=== PATIENT | male | born 1975 | race Caucasian/White ===

== ENCOUNTER 2018-02-20 12:45 | Emergency (ER) | payer OTHER, SELFPAY ==
[2018-02-20 12:50] VITALS: BP 132/90; PULSE 88; RESP 20; TEMP 36.7; O2SAT 100
--- NOTE | 2018-02-20 12:59 | DI.RAD.S_ITS ---
PROCEDURE: XR CHEST 2V INDICATIONS: chest pain TECHNIQUE: 2 views of the chest were acquired. COMPARISON: None. FINDINGS: Surgical changes and devices: None. Lungs and pleura: No pleural effusions or pneumothorax. Lungs are clear. Mediastinum: Mediastinal contours are normal. Heart size is normal. Bones and chest wall: No suspicious bony abnormalities. Soft tissues appear unremarkable. IMPRESSION: No acute cardiopulmonary disease. Dictated by: Bowen Huertas M.D. on 02/20/2018 at 13:10 Approved by: Bowen Huertas M.D. on 02/20/2018 at 13:11
--- NOTE | 2018-02-20 13:07 | ED.CHESTPAIN ---
HPI - Chest Pain General Chief Complaint: Chest Pain Stated Complaint: CHEST PAIN AND LEFT ARM PAIN Time Seen by Provider: 02/20/18 12:57 Source: patient Mode of arrival: ambulatory Limitations: no limitations History of Present Illness HPI narrative: 42 M no sig pmhx had sharp left side chest pain radiating to L arm lasting few seconds, subsequent nausea, but no vomiting. No lightheadedness or SOB. No prior episodes. 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 Symptoms resolved in ED. Took 325mg ASA prior to arrival. No sig past family hx of cardiac disease before age 65. Review of Systems Eyes Denies change in vision, Denies eye discharge, Denies irritation and Denies loss of vision ENT Ears, Nose, Mouth, and Throat: Denies change in voice, Denies neck pain and Denies sore throat Cardiovascular Denies chest pain, Denies irregular heart rhythm, Denies lightheadedness, Denies palpitations, Denies dyspnea, Denies dyspnea on exertion and Denies orthopnea Respiratory Denies cough, Denies dyspnea, Denies dyspnea on exertion and Denies wheezing Gastrointestinal Gastrointestinal: Denies abdominal pain, Denies change in bowel habits, Denies diarrhea, Denies nausea and Denies vomiting Genitourinary Denies hematuria, Denies flank pain, Denies urinary incontinence and Denies urinary urgency Musculoskeletal Denies neck pain Neurologic Denies loss of vision Endocrine Denies palpitations Hematologic/Lymphatic Denies easy bruising Allergic/Immunologic Denies wheezing [facility] Social History Smoking Status: Former smoker Exam Initial Vital Signs Initial Vital Signs: Vital Signs Temperature 98.0 F 02/20/18 12:50 Pulse Rate 88 02/20/18 12:50 Respiratory Rate 20 02/20/18 12:50 Blood Pressure 132/90 H 02/20/18 12:50 Pulse Oximetry 100 02/20/18 12:50 Const General: cooperative and well developed Nutritional Appearance: well nourished Orientation: alert, awake, oriented x3 and not confused HENMT Head: normocephalic and atraumatic Ears: external ears normal and TM's normal bilaterally Nose: external nose normal and No nasal discharge Face and sinus: sinuses nontender, face symmetric, no sinus tenderness and No dry mucous membranes Mouth: oral mucosae normal and moist mucous membranes Teeth and gingiva: dentition normal Throat: tonsils normal and uvula midline Chest Chest: normal inspection of the chest Resp Effort & Inspection: normal respiratory effort, able to speak in complete sentences, no respiratory distress and no use of accessory muscles Auscultation: clear to auscultation bilaterally, no rales, no rhonchi and no wheezes Cardio Rate: regular rate Rhythm: regular rhythm Heart Sounds: no click, no gallops, no murmurs and no rubs Pulses: normal peripheral pulses GI Inspection: non-distended Palpation: soft, no hepatosplenomegaly, No guarding, No pulsatile mass and No tender Auscultation: normal bowel sounds Skin General: no rashes or lesions noted, No jaundice and No petechiae Neuro General: alert, oriented x3, gait normal and no focal motor deficits Speech: speech normal Course Orders Ordered: ED Orders 02/20/18 12:58 EKG-12 Lead Stat 02/20/18 12:59 XR chest 2V Stat 02/20/18 13:20 Complete Blood Count AUTO DIFF Stat Comprehensive Metabolic Panel Stat Hepatic (Liver) Panel Stat Lipase Stat Partial Thromboplastin Time Stat Prothrombin Time INR Stat Troponin with CK Cardiac Panel Stat Discontinued Medications Aspirin (Aspirin Chew) 324 mg PO NOW ONE Stop: 02/20/18 12:58 Last Admin: 02/20/18 13:26 Dose: Sodium Chloride (Normal Saline 0.9%) 1,000 mls @ 150 mls/hr IV CONT JENNA Last Admin: 02/20/18 13:26 Dose: Ketorolac Tromethamine (Toradol) 15 mg IV NOW ONE Stop: 02/20/18 13:13 Last Admin: 02/20/18 13:30 Dose: 15 mg Nitroglycerin (Nitrostat) 0.4 mg SL [id number] PRN PRN Reason: Chest Pain Vital Signs - 8 hr 02/20/18 12:50 02/20/18 13:30 02/20/18 13:58 Temperature 98.0 F Pulse Rate 88 76 75 Respiratory Rate 20 13 18 Blood Pressure 132/90 H Blood Pressure [Right Arm] 120/81 H 120/81 H Pulse Oximetry 100 97 98 02/20/18 14:32 Temperature Pulse Rate 76 Respiratory Rate 12 Blood Pressure Blood Pressure [Right Arm] 114/80 Pulse Oximetry 99 MDM - Chest Pain Differential Diagnosis Likely pneumothorax, atypical chest pain, costochondritis and chest pain Medical Records Data Attestation: I reviewed the patient's medical records. Lab Data Result diagrams: 02/20/18 13:20 02/20/18 13:20 Lab Results 02/20/18 02/20/18 02/20/18 Range/Units 13:20 13:20 13:20 WBC 7.0 (4.5-11.0) X10^3/uL RBC 4.89 (4.5-5.9) X10^6/uL Hgb 14.1 (13.5-17.5) g/dL Hct 40.9 L (41-53) % MCV 83.6 (80-100) fL MCH 28.8 (26-34) PG MCHC 34.5 (30-36) % RDW 13.2 (11.6-14.8) % Plt Count 290 (150-400) X10^3/uL Neut % (Auto) 71.5 (50-75) % Lymph % (Auto) 18.8 L (25-40) % [place] % (Auto) 7.8 (3-14) % Eos % (Auto) 1.1 L (2-4) % Baso % (Auto) 0.8 (0-2) % Neut # (Auto) 5000 (5432-8610) /uL PT 11.4 (10.1-12.7) SECONDS INR 1.1 (0.9-1.3) APTT 38 H (26.4-36.2) SECONDS Sodium 143 (137-145) mmol/L Potassium 4.6 (3.4-5.1) mmol/L Chloride 105.0 (98-107) mmol/L Carbon Dioxide 27.0 (22-32) mmol/L BUN 15.0 (9-20) mg/dL Creatinine 0.80 (0.66-1.25) mg/dL Estimated GFR > 60.0 (>60) mL/min BUN/Creatinine Ratio 18.8 (6-22) Glucose 99 (70-100) mg/dL Calcium 9.4 (8.4-10.2) mg/dL Total Bilirubin 0.4 (0.2-1.3) mg/dL Conjugated Bilirubin 0.0 (0.0-0.3) md/dL Unconjugated Bilirubin 0.1 (0.0-1.1) mg/dL AST 23 (17-59) IU/L ALT 31 (21-72) IU/L Alkaline Phosphatase 95 (38-126) U/L Total Creatine Kinase 114 (55-170) U/L CK-MB (CK-2) 0.62 (<2.37) ng/mL CK-MB (CK-2) Rel Index 0.5 L (1.5-5.0) % Troponin I < 0.012 (0.01-0.034) ng/mL Total Protein 7.9 (6.3-8.2) g/dL Albumin 4.5 (3.5-5.0) g/dL Globulin 3.4 (1.7-4.1) g/dL Albumin/Globulin Ratio 1.3 (1.0-2.8) Lipase 58 (23-300) U/L Imaging Data Chest x-ray: My impression: CXR WNL Radiologist's impression: Patient: DANA SAUNDERS#: [id number] : 1975Acct:[id number] Age/Sex: 42 / MDate of Service: 02/20/18 Loc: ED Accession Number: [id number] Procedure: XR chest 2V Ordering Provider: Rl Padgett M.D. PROCEDURE: XR CHEST 2V INDICATIONS: chest pain TECHNIQUE: 2 views of the chest were acquired. COMPARISON: None. FINDINGS: Surgical changes and devices: None. Lungs and pleura: No pleural effusions or pneumothorax. Lungs are clear. Mediastinum: Mediastinal contours are normal. Heart size is normal. Bones and chest wall: No suspicious bony abnormalities. Soft tissues appear unremarkable. IMPRESSION: No acute cardiopulmonary disease. Dictated by: Bowen Huertas M.D. on 02/20/2018 at 13:10 Approved by: Bowen Huertas M.D. on 02/20/2018 at 13:11 ECG Data Interpretation: Sinus rhythm HR [address]/Tw changes No ectopy [place] intervals WNL MDM Narrative Medical decision making narrative: PERC negative Sharp pain unlikely cardiac in patient with no significant risk factors. CXR is WNL Labs reviewed. No acute abnormalities requiring urgent intervention at this time. Patient is stable for discharge. Discharge Plan Departure Patient Disposition: Home, Self-Care Clinical Impression: Chest pain, non-cardiac Discharge Date/Time: 02/20/18 14:46 Interventions: ED Discharge Assessment Last Done: 02/20/18 14:45 Instructions: DI for Chest Pain Activity Restrictions/Additional Instructions: Maintain adequate hydration. Please follow up with your primary care provider.
--- NOTE | 2018-02-20 13:20 | ED_ITS ---
HPI - Chest Pain General Chief Complaint: Chest Pain Stated Complaint: CHEST PAIN AND LEFT ARM PAIN Time Seen by Provider: 02/20/18 12:57 Source: patient Mode of arrival: ambulatory Limitations: no limitations History of Present Illness HPI narrative: 42 M no sig pmhx had sharp left side chest pain radiating to L arm lasting few seconds, subsequent nausea, but no vomiting. No lightheadedness or SOB. No prior episodes. 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 Symptoms resolved in ED. Took 325mg ASA prior to arrival. No sig past family hx of cardiac disease before age 65. Review of Systems Eyes Denies change in vision, Denies eye discharge, Denies irritation and Denies loss of vision ENT Ears, Nose, Mouth, and Throat: Denies change in voice, Denies neck pain and Denies sore throat Cardiovascular Denies chest pain, Denies irregular heart rhythm, Denies lightheadedness, Denies palpitations, Denies dyspnea, Denies dyspnea on exertion and Denies orthopnea Respiratory Denies cough, Denies dyspnea, Denies dyspnea on exertion and Denies wheezing Gastrointestinal Gastrointestinal: Denies abdominal pain, Denies change in bowel habits, Denies diarrhea, Denies nausea and Denies vomiting Genitourinary Denies hematuria, Denies flank pain, Denies urinary incontinence and Denies urinary urgency Musculoskeletal Denies neck pain Neurologic Denies loss of vision Endocrine Denies palpitations Hematologic/Lymphatic Denies easy bruising Allergic/Immunologic Denies wheezing [facility] Social History Smoking Status: Former smoker Exam Initial Vital Signs Initial Vital Signs: Vital Signs Temperature 98.0 F 02/20/18 12:50 Pulse Rate 88 02/20/18 12:50 Respiratory Rate 20 02/20/18 12:50 Blood Pressure 132/90 H 02/20/18 12:50 Pulse Oximetry 100 02/20/18 12:50 Const General: cooperative and well developed Nutritional Appearance: well nourished Orientation: alert, awake, oriented x3 and not confused HENMT Head: normocephalic and atraumatic Ears: external ears normal and TM's normal bilaterally Nose: external nose normal and No nasal discharge Face and sinus: sinuses nontender, face symmetric, no sinus tenderness and No dry mucous membranes Mouth: oral mucosae normal and moist mucous membranes Teeth and gingiva: dentition normal Throat: tonsils normal and uvula midline Chest Chest: normal inspection of the chest Resp Effort & Inspection: normal respiratory effort, able to speak in complete sentences, no respiratory distress and no use of accessory muscles Auscultation: clear to auscultation bilaterally, no rales, no rhonchi and no wheezes Cardio Rate: regular rate Rhythm: regular rhythm Heart Sounds: no click, no gallops, no murmurs and no rubs Pulses: normal peripheral pulses GI Inspection: non-distended Palpation: soft, no hepatosplenomegaly, No guarding, No pulsatile mass and No tender Auscultation: normal bowel sounds Skin General: no rashes or lesions noted, No jaundice and No petechiae Neuro General: alert, oriented x3, gait normal and no focal motor deficits Speech: speech normal Course Orders Ordered: ED Orders 02/20/18 12:58 EKG-12 Lead Stat 02/20/18 12:59 XR chest 2V Stat 02/20/18 13:20 Complete Blood Count AUTO DIFF Stat Comprehensive Metabolic Panel Stat Hepatic (Liver) Panel Stat Lipase Stat Partial Thromboplastin Time Stat Prothrombin Time INR Stat Troponin with CK Cardiac Panel Stat Discontinued Medications Aspirin (Aspirin Chew) 324 mg PO NOW ONE Stop: 02/20/18 12:58 Last Admin: 02/20/18 13:26 Dose: Sodium Chloride (Normal Saline 0.9%) 1,000 mls @ 150 mls/hr IV CONT JENNA Last Admin: 02/20/18 13:26 Dose: Ketorolac Tromethamine (Toradol) 15 mg IV NOW ONE Stop: 02/20/18 13:13 Last Admin: 02/20/18 13:30 Dose: 15 mg Nitroglycerin (Nitrostat) 0.4 mg SL [id number] PRN PRN Reason: Chest Pain Vital Signs - 8 hr 02/20/18 12:50 02/20/18 13:30 02/20/18 13:58 Temperature 98.0 F Pulse Rate 88 76 75 Respiratory Rate 20 13 18 Blood Pressure 132/90 H Blood Pressure [Right Arm] 120/81 H 120/81 H Pulse Oximetry 100 97 98 02/20/18 14:32 Temperature Pulse Rate 76 Respiratory Rate 12 Blood Pressure Blood Pressure [Right Arm] 114/80 Pulse Oximetry 99 MDM - Chest Pain Differential Diagnosis Likely pneumothorax, atypical chest pain, costochondritis and chest pain Medical Records Data Attestation: I reviewed the patient's medical records. Lab Data Result diagrams: 02/20/18 13:20 02/20/18 13:20 Lab Results 02/20/18 02/20/18 02/20/18 Range/Units 13:20 13:20 13:20 WBC 7.0 (4.5-11.0) X10^3/uL RBC 4.89 (4.5-5.9) X10^6/uL Hgb 14.1 (13.5-17.5) g/dL Hct 40.9 L (41-53) % MCV 83.6 (80-100) fL MCH 28.8 (26-34) PG MCHC 34.5 (30-36) % RDW 13.2 (11.6-14.8) % Plt Count 290 (150-400) X10^3/uL Neut % (Auto) 71.5 (50-75) % Lymph % (Auto) 18.8 L (25-40) % [place] % (Auto) 7.8 (3-14) % Eos % (Auto) 1.1 L (2-4) % Baso % (Auto) 0.8 (0-2) % Neut # (Auto) 5000 (8886-1202) /uL PT 11.4 (10.1-12.7) SECONDS INR 1.1 (0.9-1.3) APTT 38 H (26.4-36.2) SECONDS Sodium 143 (137-145) mmol/L Potassium 4.6 (3.4-5.1) mmol/L Chloride 105.0 (98-107) mmol/L Carbon Dioxide 27.0 (22-32) mmol/L BUN 15.0 (9-20) mg/dL Creatinine 0.80 (0.66-1.25) mg/dL Estimated GFR > 60.0 (>60) mL/min BUN/Creatinine Ratio 18.8 (6-22) Glucose 99 (70-100) mg/dL Calcium 9.4 (8.4-10.2) mg/dL Total Bilirubin 0.4 (0.2-1.3) mg/dL Conjugated Bilirubin 0.0 (0.0-0.3) md/dL Unconjugated Bilirubin 0.1 (0.0-1.1) mg/dL AST 23 (17-59) IU/L ALT 31 (21-72) IU/L Alkaline Phosphatase 95 (38-126) U/L Total Creatine Kinase 114 (55-170) U/L CK-MB (CK-2) 0.62 (<2.37) ng/mL CK-MB (CK-2) Rel Index 0.5 L (1.5-5.0) % Troponin I < 0.012 (0.01-0.034) ng/mL Total Protein 7.9 (6.3-8.2) g/dL Albumin 4.5 (3.5-5.0) g/dL Globulin 3.4 (1.7-4.1) g/dL Albumin/Globulin Ratio 1.3 (1.0-2.8) Lipase 58 (23-300) U/L Imaging Data Chest x-ray: My impression: CXR WNL Radiologist's impression: Patient: DANA SAUNEDRS#: [id number] : 1975Acct:[id number] Age/Sex: 42 / MDate of Service: 02/20/18 Loc: ED Accession Number: [id number] Procedure: XR chest 2V Ordering Provider: Rl Padgett M.D. PROCEDURE: XR CHEST 2V INDICATIONS: chest pain TECHNIQUE: 2 views of the chest were acquired. COMPARISON: None. FINDINGS: Surgical changes and devices: None. Lungs and pleura: No pleural effusions or pneumothorax. Lungs are clear. Mediastinum: Mediastinal contours are normal. Heart size is normal. Bones and chest wall: No suspicious bony abnormalities. Soft tissues appear unremarkable. IMPRESSION: No acute cardiopulmonary disease. Dictated by: Bowen Huertas M.D. on 02/20/2018 at 13:10 Approved by: Bowen Huertas M.D. on 02/20/2018 at 13:11 ECG Data Interpretation: Sinus rhythm HR [address]/Tw changes No ectopy [place] intervals WNL MDM Narrative Medical decision making narrative: PERC negative Sharp pain unlikely cardiac in patient with no significant risk factors. CXR is WNL Labs reviewed. No acute abnormalities requiring urgent intervention at this time. Patient is stable for discharge. Discharge Plan Departure Patient Disposition: Home, Self-Care Clinical Impression: Chest pain, non-cardiac Discharge Date/Time: 02/20/18 14:46 Interventions: ED Discharge Assessment Last Done: 02/20/18 14:45 Instructions: DI for Chest Pain Activity Restrictions/Additional Instructions: Maintain adequate hydration. Please follow up with your primary care provider.
[2018-02-20 13:29] LABS: Add Manual Diff / Slide Review NO; Basophils Percent Auto 0.8 % (0-2); Eosinophils Percent Auto 1.1 % (2-4); Hematocrit 40.9 % (41-53); Hemoglobin 14.1 g/dL (13.5-17.5); Lymphocytes Percent Auto 18.8 % (25-40); Mean Corpuscular HGB Conc 34.5 % (30-36); Mean Corpuscular Hemoglobin 28.8 PG (26-34); Mean Corpuscular Volume 83.6 fL (80-100); Monocytes Percent Auto 7.8 % (3-14); Neutrophils Absolute Auto 5000 /uL (3000-5900); Neutrophils Percent Auto 71.5 % (50-75); Platelet Count 290 X10^3/uL (150-400); Red Blood Cell Count 4.89 X10^6/uL (4.5-5.9); Red Cell Distribution Width 13.2 % (11.6-14.8)
[2018-02-20 13:30] VITALS: BP 120/81; PULSE 76; RESP 13; O2SAT 97
[2018-02-20] MEDS: KETOROLAC 60 MG/2 ML VIAL 15 MG IV (13:30)
[2018-02-20 13:37] LABS: INR 1.1 (0.9-1.3); Prothrombin Time 11.4 SECONDS (10.1-12.7)
[2018-02-20 13:39] LABS: PTT Partial Thromboplastin Tim 38 SECONDS (26.4-36.2)
[2018-02-20 13:42] LABS: Alanine Aminotransferase 31 IU/L (21-72); Albumin 4.5 g/dL (3.5-5.0); Albumin Globulin Ratio 1.3 (1.0-2.8); Alkaline Phosphatase 95 U/L (38-126); Aspartate Aminotransferase 23 IU/L (17-59); BUN Creatinine Ratio 18.8 (6-22); Bilirubin Total 0.4 mg/dL (0.2-1.3); Bilirubin Unconjugated 0.1 mg/dL (0.0-1.1); Calcium 9.4 mg/dL (8.4-10.2); Creatine Kinase 114 U/L (55-170); Estimated Glomerular Filt Rate > 60.0 mL/min (>60); Globulin 3.4 g/dL (1.7-4.1); Glucose 99 mg/dL (70-100); HEMOLYSIS < 15 (0-50); Lipase 58 U/L (23-300); Potassium 4.6 mmol/L (3.4-5.1); Sodium 143 mmol/L (137-145); Total Protein 7.9 g/dL (6.3-8.2)
[2018-02-20 13:54] LABS: Troponin I < 0.012 ng/mL (0.01-0.034)
[2018-02-20 13:58] VITALS: BP 120/81; PULSE 75; RESP 18; O2SAT 98
[2018-02-20 13:58] LABS: CKMB % Relative Index 0.5 % (1.5-5.0); Creatine Kinase MB 0.62 ng/mL (<2.37)
[2018-02-20 14:32] VITALS: BP 114/80; PULSE 76; RESP 12; O2SAT 99
== END 2018-02-20 14:46 | disposition home or self-care (01) ==
PROVIDERS: Emergency Provider Student in an Organized Health Care Education/Training Program
DX: R07.89 Other chest pain (principal)
CPT/HCPCS: 71046; 80053; 80076; 82550; 82553; 83690; 84484; 85025; 85610; 85730; 93005; 93041; 96374; 99283; 99285; J1885

== ENCOUNTER → 2019-02-07 09:14 | Outpatient (CLI) | payer OTHER, SELFPAY ==
--- NOTE | 2019-02-07 | DI.MRI.S_ITS ---
PROCEDURE: MR SHOULDER LT W CON INDICATIONS: LEFT SHOULDER PAIN TECHNIQUE: After the administration of 12 mL of dilute intra-articular Gadolinium contrast, oblique coronal T1 and T2 spin echo with fat saturation, oblique sagittal T1 spin echo with and without fat saturation, oblique sagittal T2 fast spin echo with fat saturation, axial T1 spin echo with fat saturation through the shoulder. COMPARISON: None. FINDINGS: Image quality: Excellent. Rotator cuff: Supraspinatus and infraspinatus tendinopathy, with mild thickening and internal signal changes. Low-grade bursal and articular surface fraying of the critical zone of the supraspinatus tendon. There is also mild articular surface fraying of the infraspinatus tendon. Minimal teres minor tendinopathy of the subscapularis tendon appears grossly intact. No atrophy of the rotator cuff musculature although there is mild diffuse fatty infiltration. Bones and bursae: No bone marrow contusions or fractures. Moderate acromioclavicular joint degeneration. Lateral downsloping appearance of the acromion. The acromion demonstrates conventional anatomy, without an os acromiale. Capsule and soft tissues: Superior labral tear is noted. The long head of the biceps tendon demonstrates normal location and morphology. The rotator interval appears normal, without fibrosis. The coracohumeral ligament is of normal thickness. No intra-articular bodies. IMPRESSION: Supraspinatus tendinopathy with low-grade partial thickness bursal and articular-sided tear at the critical zone. No full-thickness tear. Mild articular surface fraying of the infraspinatus tendon. Minimal teres minor tendinopathy. Superior labral tear. Lateral downsloping appearance of the acromion. Dictated by: Babatunde Cadena M.D. on 02/07/2019 at 11:27 Approved by: Babatunde Cadena M.D. on 02/07/2019 at 11:34
--- NOTE | 2019-02-07 | DI.RAD.S_ITS ---
PROCEDURE: FL SHOULDER INJECTION MR/CT LT INDICATIONS: LEFT SHOULDER PAIN TECHNIQUE: The indications, alternatives, benefits, risks, and complications of the procedure were explained to the patient. Written informed consent was obtained and placed in the chart. The shoulder was examined fluoroscopically and a site for needle placement chosen for entry into the glenohumeral joint from an anterior approach. The skin was prepped and draped in a sterile fashion, and 1% lidocaine infiltrated from skin down to joint capsule. A spinal needle was inserted into the glenohumeral joint, and a small amount of iodinated contrast media injected to confirm intra-articular placement of the needle tip. This was followed by approximately 12 mL dilute solution of a gadolinium containing MR contrast agent. The needle was removed and a dressing was applied. The patient was given postprocedural instructions and sent to the MR suite for MR imaging. FINDINGS: A single fluoroscopic spot image demonstrates intra-articular location of injected iodinated contrast. IMPRESSION: Successful fluoroscopically guided administration of dilute Gadolinium solution into the shoulder joint for MR arthrogram. Dictated by: Hoa Torres M.D. on 02/07/2019 at 11:57 Approved by: Hoa Torres M.D. on 02/07/2019 at 11:57
== END ==
PROVIDERS: PCP Family Medicine; Visit Provider Family Medicine
DX: S43.402A Unspecified sprain of left shoulder joint, initial encounter (principal); M75.112 Incomplete rotator cuff tear or rupture of left shoulder, not specified as traumatic; S43.432A Superior glenoid labrum lesion of left shoulder, initial encounter
CPT/HCPCS: 23350; 73222; 77002

== ENCOUNTER 2020-08-04 10:46 | Emergency (ER) | payer OTHER, SELFPAY ==
[2020-08-04] VITALS (8 sets, daily range): BP systolic 111–146; BP diastolic 69–85; PULSE 84–113; RESP 15; TEMP 36.9; O2SAT 95–98; BMI 25.8
[2020-08-04 11:08] LABS: Add Manual Diff / Slide Review NO; Basophils Absolute Auto 0 /uL (0-100); Basophils Percent Auto 0.8 % (0-2); Eosinophils Absolute Auto 100 /uL (0-450); Eosinophils Percent Auto 1.3 % (2-4); Hematocrit 43.5 % (41-53); Hemoglobin 14.6 g/dL (13.5-17.5); Lymphocytes Absolute Auto 1400 /uL (1100-4500); Lymphocytes Percent Auto 23.9 % (25-40); Mean Corpuscular HGB Conc 33.4 % (30-36); Mean Corpuscular Hemoglobin 28.7 PG (26-34); Mean Corpuscular Volume 85.7 fL (80-100); Monocytes Absolute Auto 700 /uL (0-900); Monocytes Percent Auto 12.5 % (3-14); Neutrophils Absolute Auto 3700 /uL (1500-7000); Neutrophils Percent Auto 61.5 % (50-75); Platelet Count 313 X10^3/uL (150-400); Red Blood Cell Count 5.08 X10^6/uL (4.5-5.9)
[2020-08-04 11:13] LABS: INR 1.1 (0.9-1.3); Prothrombin Time 12.2 SECONDS (10.1-12.7)
[2020-08-04 11:16] LABS: PTT Partial Thromboplastin Tim 38 SECONDS (26.4-36.2)
[2020-08-04 11:19] LABS: Alanine Aminotransferase 29 IU/L (<50); Albumin 4.6 g/dL (3.5-5.0); Albumin Globulin Ratio 1.2 (1.0-2.8); Alkaline Phosphatase 106 U/L (38-126); Aspartate Aminotransferase 27 IU/L (17-59); BUN Creatinine Ratio 23.2 (6-22); Bilirubin Total 0.4 mg/dL (0.2-1.3); Blood Urea Nitrogen 16 mg/dL (9-20); Calcium 9.6 mg/dL (8.4-10.2); Carbon Dioxide 24 mmol/L (22-32); Chloride 105 mmol/L (98-107); Estimated Glomerular Filt Rate > 60.0 mL/min (>60); Globulin 3.7 g/dL (1.7-4.1); Glucose 102 mg/dL (70-100); HEMOLYSIS < 15 (0-50); Lipase 76 U/L (23-300); Sodium 137 mmol/L (137-145); Total Protein 8.3 g/dL (6.3-8.2)
--- NOTE | 2020-08-04 14:12 | PC.NURSE ---
Two months of intermittent abdominal pain, RUQ, and nausea/diarrhea. Pt also reports recent ultrasound through [facility] for white/light stools.
--- NOTE | 2020-08-04 14:17 | DI.US.S_ITS ---
PROCEDURE: US ABDOMEN LIMITED INDICATIONS: RUQ pain, + marin TECHNIQUE: Real-time scanning was performed of the abdominal and retroperitoneal organs, with image documentation. COMPARISON: [facility], US, US ABDOMEN COMPLETE, 07/17/2020, 11:26. FINDINGS: Liver: The liver demonstrates diffusely increased echotexture without focal abnormalities consistent with chronic hepatocellular disease/hepatic steatosis. Gallbladder: Gallbladder is normal in sonographic appearance without gallstones, gallbladder wall thickening, pericholecystic fluid, or abnormal sonographic Marin's. Biliary ducts: Intrahepatic bile ducts are non-dilated. Extrahepatic bile duct caliber measures 2 mm. Normal is 6-7 mm or less in diameter, or 10 mm or less post-cholecystectomy. Pancreas: Visualized portions of the pancreas are sonographically normal. Miscellaneous: No free abdominal fluid. IMPRESSION: The liver demonstrates diffusely increased echotexture without focal abnormalities consistent with chronic hepatocellular disease/hepatic steatosis. Consider correlation with LFTs. Normal sonographic evaluation of the gallbladder. Dictated by: Leonardo Pugh M.D. on 08/04/2020 at 14:01 Approved by: Leonardo Pugh M.D. on 08/04/2020 at 14:04
[2020-08-04] MEDS: SODIUM CHLORIDE 0.9% 1,000 ML 1000 ML IV (14:25)
[2020-08-04] MEDS: KETOROLAC 60 MG/2 ML VIAL 30 MG IV (15:49)
--- NOTE | 2020-08-04 17:06 | ED_ITS ---
HPI - Abdominal Pain <SUE Reyes - Last Filed: 08/04/20 17:19> General Chief Complaint: Abdominal Pain Stated Complaint: ruq pain/bloating x1 1/2 month Time Seen by Provider: 08/04/20 13:41 Source: patient Mode of arrival: Ambulatory Limitations: no limitations History of Present Illness HPI narrative: The patient is a 44-year-old male medical history presents with a chief complaint of right upper quadrant pain for the past month +, worse this morning at 3:30 a.m.. States that he has had a an ultrasound of his gallbladder in his liver has been referred to GI and has an appointment with them on Sunday. He denies any vomiting complains of slight nausea. Denies any feve rs but did have some chills earlier today. He states that his pain is right upper quadrant was terrible at 3:30 a.m. this morning. He later admits that he had ice cream and apple pie last night after dinner after trying to avoid fatty foods for the past month or so. He wonders if there is a lot of fat in apple pie or ice cream. Related Data Previous Rx's Medication Instructions Recorded ketorolac 10 mg PO TID PRN #15 tab 08/04/20 Allergies Allergy/AdvReac Type Severity Reaction Status Date / Time No Known Drug Allergies Allergy Verified 08/04/20 10:52 Review of Systems <SUE Reyse - Last Filed: 08/04/20 17:19> Review of Systems Narrative: GENERAL: Denies chills, fatigue, malaise, fever, sweats. HEENT: Denies sinus pain, ear pain, sore throat, difficulty swallowing, dizziness. RESPIRATORY: Denies dyspnea, cough, wheezing, hemoptysis, sputum. CARDIOVASCULAR: Denies chest pain, palpitations, orthopnea, edema, GASTROINTESTINAL: See HPI : Denies dysuria, frequency, incontinence, hematuria, urinary retention. MUSCULOSKELETAL: denies weakness, joint pain, or bony pain SKIN: Denies rash, skin lesions, or other NEUROLOGIC: Denies weakness, headache, numbness, change in speech, confusion, seizures, incoordination. PSYCHIATRIC: No concerning psychosocial issues. 12 point review of systems is negative except for those stated above Patient History <SEU ReyesJAQUI - Last Filed: 08/04/20 17:19> Social History Smoking Status: Former smoker Smoking Status: Former smoker alcohol intake frequency: 0-2 drinks per day Substance Use Type: does not use Exam <SWEETIE Reyes - Last Filed: 08/04/20 17:19> Narrative Exam Narrative: GENERAL: This is a well-nourished, well-developed patient, in no acute distress HEAD: Atraumatic. Normocephalic. No temporal or scalp tenderness. EYES: Pupils equal round and reactive. Extraocular motions intact. No scleral icterus. No injection or drainage. ENT: Nose without bleeding, purulent drainage or septal hematoma. Throat without erythema, tonsillar hypertrophy or exudate. Uvula midline. Airway patent. NECK: Trachea midline. No JVD or lymphadenopathy. Supple, nontender, no meningeal signs. CARDIOVASCULAR: Regular rate and rhythm without murmurs, gallops, or rubs. RESPIRATORY: Clear to auscultation. Breath sounds equal bilaterally. No wheezes, rales, or rhonchi. No cough. No increased respiratory effort. No accessory muscle use. GASTROINTESTINAL: Abdomen soft, diffusely tender across right upper quadrant, slight guarding to palpation right upper quadrant, nondistended. No hepato- splenomegaly, or palpable masses. Active bowel sounds all 4 quadrants EXTREMITIES: No clubbing, cyanosis, or edema. No joint tenderness, effusion, or edema noted. BACK: Nontender without deformity or crepitance. No flank tenderness. NEURO: AOx3. SKIN: No rash or erythema on visible skin Initial Vital Signs Initial Vital Signs: Vital Signs Temperature 98.5 F 08/04/20 10:52 Pulse Rate 113 H 08/04/20 10:52 Respiratory Rate 15 08/04/20 10:52 Blood Pressure 146/85 H 08/04/20 10:52 Pulse Oximetry 98 08/04/20 10:52 <Pb Moyer MD - Last Filed: 08/05/20 08:15> Initial Vital Signs Initial Vital Signs: Vital Signs Temperature 98.5 F 08/04/20 10:52 Pulse Rate 113 H 08/04/20 10:52 Respiratory Rate 15 08/04/20 10:52 Blood Pressure 146/85 H 08/04/20 10:52 Pulse Oximetry 98 08/04/20 10:52 Scores <SWEETIE Reyes - Last Filed: 08/04/20 17:19> GCS [place] coma scale eye opening: Spontaneous [place] coma scale verbal response: Orientated Aren coma scale motor response: Obey commands Aren coma scale total score: 15 Course <SWEETIE Reyes - Last Filed: 08/04/20 17:19> Orders Ordered: Discontinued Medications Sodium Chloride (Normal Saline 0.9%) 1,000 mls @ 1,000 mls/hr IV BOLUS ONE Stop: 08/04/20 15:16 Last Infusion: 08/04/20 15:49 Dose: 0 mls/hr Documented by: Admin: 08/04/20 14:25 Dose: 1,000 mls/hr Documented by: REBA Ketorolac Tromethamine (Toradol) 30 mg IV NOW ONE Stop: 08/04/20 15:41 Last Admin: 08/04/20 15:49 Dose: 30 mg Documented by: REBA Vital Signs Vital signs: Vital Signs - 8 hr 08/04/20 10:52 08/04/20 14:18 08/04/20 14:30 Temperature 98.5 F Pulse Rate 113 H 85 85 Respiratory Rate 15 Blood Pressure 146/85 H 121/76 Pulse Oximetry 98 98 97 08/04/20 15:03 08/04/20 15:05 08/04/20 15:30 Temperature Pulse Rate 97 H 89 85 Respiratory Rate Blood Pressure 123/84 116/76 Pulse Oximetry 96 97 98 08/04/20 16:00 08/04/20 17:08 Temperature Pulse Rate 84 86 Respiratory Rate Blood Pressure 111/71 118/69 Pulse Oximetry 97 95 <Pb Moyer MD - Last Filed: 08/05/20 08:15> Orders Ordered: Discontinued Medications Sodium Chloride (Normal Saline 0.9%) 1,000 mls @ 1,000 mls/hr IV BOLUS ONE Stop: 08/04/20 15:16 Last Infusion: 08/04/20 15:49 Dose: 0 mls/hr Documented by: Admin: 08/04/20 14:25 Dose: 1,000 mls/hr Documented by: REBA Ketorolac Tromethamine (Toradol) 30 mg IV NOW ONE Stop: 08/04/20 15:41 Last Admin: 08/04/20 15:49 Dose: 30 mg Documented by: REBA Vital Signs Vital signs: Vital Signs - 8 hr 08/04/20 10:52 08/04/20 14:18 08/04/20 14:30 Temperature 98.5 F Pulse Rate 113 H 85 85 Respiratory Rate 15 Blood Pressure 146/85 H 121/76 Pulse Oximetry 98 98 97 08/04/20 15:03 08/04/20 15:05 08/04/20 15:30 Temperature Pulse Rate 97 H 89 85 Respiratory Rate Blood Pressure 123/84 116/76 Pulse Oximetry 96 97 98 08/04/20 16:00 08/04/20 17:08 Temperature Pulse Rate 84 86 Respiratory Rate Blood Pressure 111/71 118/69 Pulse Oximetry 97 95 MDM - Abdominal Pain <CONSTANZA Reyes- - Last Filed: 08/04/20 17:19> Lab Data Attestation: I reviewed the patient's lab results. Result diagrams: 08/04/20 10:02 08/04/20 10:02 Labs: Lab Results 08/04/20 08/04/20 08/04/20 Range/Units 10:02 10:02 10:02 WBC 6.0 (4.5-11.0) X10^3/uL RBC 5.08 (4.5-5.9) X10^6/uL Hgb 14.6 (13.5-17.5) g/dL Hct 43.5 (41-53) % MCV 85.7 (80-100) fL MCH 28.7 (26-34) PG MCHC 33.4 (30-36) % RDW 13.0 (11.6-14.8) % Plt Count 313 (150-400) X10^3/uL Neut % (Auto) 61.5 (50-75) % Lymph % (Auto) 23.9 L (25-40) % Duval % (Auto) 12.5 (3-14) % Eos % (Auto) 1.3 L (2-4) % Baso % (Auto) 0.8 (0-2) % Neut # (Auto) 3700 (1616-2764) /uL Lymph # (Auto) 1400 (3437-4642) /uL [place] # (Auto) 700 (0-900) /uL Eos # (Auto) 100 (0-450) /uL Baso # (Auto) 0 (0-100) /uL PT 12.2 (10.1-12.7) SECONDS INR 1.1 (0.9-1.3) APTT 38 H (26.4-36.2) SECONDS Sodium 137 (137-145) mmol/L Potassium 4.0 (3.4-5.1) mmol/L Chloride 105 (98-107) mmol/L Carbon Dioxide 24 (22-32) mmol/L BUN 16 (9-20) mg/dL Creatinine 0.69 (0.66-1.25) mg/dL Estimated GFR > 60.0 (>60) mL/min BUN/Creatinine Ratio 23.2 H (6-22) Glucose 102 H (70-100) mg/dL Calcium 9.6 (8.4-10.2) mg/dL Total Bilirubin 0.4 (0.2-1.3) mg/dL AST 27 (17-59) IU/L ALT 29 (<50) IU/L Alkaline Phosphatase 106 (38-126) U/L Total Protein 8.3 H (6.3-8.2) g/dL Albumin 4.6 (3.5-5.0) g/dL Globulin 3.7 (1.7-4.1) g/dL Albumin/Globulin Ratio 1.2 (1.0-2.8) Lipase 76 (23-300) U/L Point of care testing: Urine Dip Bedside Urine Glucose Negative Bedside Urine Bilirubin - Negative Bedside Urine Ketone - Negative Urine Specific [place] 1.015 Bedside Urine Occult Blood - Negative Bedside Urine pH 6.5 Bedside Urine Protein - Negative Bedside Urine Urobilinogen - Negative Bedside Urine Nitrite - Negative Bedside Urine Leukocytes - Negative Esterase Imaging Data US - abdomen: Radiologist's Impression: [address] [place] [id number] Ultrasound Report Signed Patient: Gil Schmitt EMR#: [id number] : 1975Acct:[id number] Age/Sex: 44 / MDate of Service: 08/04/20 Loc: ED Accession Number: [id number] Procedure: US abdomen limited Ordering Provider: Radha Min CUTTING MACHINE FIXER- PROCEDURE: US ABDOMEN LIMITED INDICATIONS: RUQ pain, + marin TECHNIQUE: Real-time scanning was performed of the abdominal and retroperitoneal organs, with image documentation. COMPARISON: [facility], US, US ABDOMEN COMPLETE, 07/17/2020, 11:26. FINDINGS: Liver: The liver demonstrates diffusely increased echotexture without focal abnormalities consistent with chronic hepatocellular disease/hepatic steatosis. Gallbladder: Gallbladder is normal in sonographic appearance without gallstones, gallbladder wall thickening, pericholecystic fluid, or abnormal sonographic Marin's. Biliary ducts: Intrahepatic bile ducts are non-dilated. Extrahepatic bile duct caliber measures 2 mm. Normal is 6-7 mm or less in diameter, or 10 mm or less post-cholecystectomy. Pancreas: Visualized portions of the pancreas are sonographically normal. Miscellaneous: No free abdominal fluid. IMPRESSION: The liver demonstrates diffusely increased echotexture without focal abnormalities consistent with chronic hepatocellular disease/hepatic steatosis. Consider correlation with LFTs. Normal sonographic evaluation of the gallbladder. Dictated by: Leonardo Pugh M.D. on 08/04/2020 at 14:01 Approved by: Leonardo Pugh M.D. on 08/04/2020 at 14:04 MDM Narrative Medical decision making narrative: The patient is a 44-year-old male presents with a chief complaint of right upper quadrant pain since waking up at 3:00 a.m. in the morning after having apple pie and ice cream last night. The patient peers well, nontoxic. Normal LFTs, and normal bilirubin, no leukocytosis. Ultrasound completed to help rule out acute cholecystitis, which came back normal with no signs of acute cholecystitis. Patient does have some noted echotexture of his liver, discussed this at length with him and encouraged him to follow up with primary care provider as well as GI as he already has scheduled on Sunday. He felt improved after Toradol so prescription given. Patient declines narcotic pain medications and declines nausea medicine. I did discussed at length coming back to the ER for acute concerns such as abdominal pain with fever inability keep down fluids etcetera I did encourage him to avoid Tylenol or drinking alcohol. Discussed at length dietary changes, avoiding fried foods, deep fried foods, fatty foods such as apple pie steak etcetera. Patient has no questions or concerns upon discharge and states understanding return precautions as well as follow-up care. <Pb Moyer MD - Last Filed: 08/05/20 08:15> Lab Data Labs: Lab Results 08/04/20 08/04/20 08/04/20 Range/Units 10:02 10:02 10:02 WBC 6.0 (4.5-11.0) X10^3/uL RBC 5.08 (4.5-5.9) X10^6/uL Hgb 14.6 (13.5-17.5) g/dL Hct 43.5 (41-53) % MCV 85.7 (80-100) fL MCH 28.7 (26-34) PG MCHC 33.4 (30-36) % RDW 13.0 (11.6-14.8) % Plt Count 313 (150-400) X10^3/uL Neut % (Auto) 61.5 (50-75) % Lymph % (Auto) 23.9 L (25-40) % [place] % (Auto) 12.5 (3-14) % Eos % (Auto) 1.3 L (2-4) % Baso % (Auto) 0.8 (0-2) % Neut # (Auto) 3700 (3947-1761) /uL Lymph # (Auto) 1400 (6955-9077) /uL [place] # (Auto) 700 (0-900) /uL Eos # (Auto) 100 (0-450) /uL Baso # (Auto) 0 (0-100) /uL PT 12.2 (10.1-12.7) SECONDS INR 1.1 (0.9-1.3) APTT 38 H (26.4-36.2) SECONDS Sodium 137 (137-145) mmol/L Potassium 4.0 (3.4-5.1) mmol/L Chloride 105 (98-107) mmol/L Carbon Dioxide 24 (22-32) mmol/L BUN 16 (9-20) mg/dL Creatinine 0.69 (0.66-1.25) mg/dL Estimated GFR > 60.0 (>60) mL/min BUN/Creatinine Ratio 23.2 H (6-22) Glucose 102 H (70-100) mg/dL Calcium 9.6 (8.4-10.2) mg/dL Total Bilirubin 0.4 (0.2-1.3) mg/dL AST 27 (17-59) IU/L ALT 29 (<50) IU/L Alkaline Phosphatase 106 (38-126) U/L Total Protein 8.3 H (6.3-8.2) g/dL Albumin 4.6 (3.5-5.0) g/dL Globulin 3.7 (1.7-4.1) g/dL Albumin/Globulin Ratio 1.2 (1.0-2.8) Lipase 76 (23-300) U/L Point of care testing: Urine Dip Bedside Urine Glucose Negative Bedside Urine Bilirubin - Negative Bedside Urine Ketone - Negative Urine Specific [place] 1.015 Bedside Urine Occult Blood - Negative Bedside Urine pH 6.5 Bedside Urine Protein - Negative Bedside Urine Urobilinogen - Negative Bedside Urine Nitrite - Negative Bedside Urine Leukocytes - Negative Esterase Discharge Plan Departure Patient Disposition: Home Clinical Impression: Biliary colic symptom Abdominal pain Qualifiers: Abdominal location: right upper quadrant Qualified Code(s): R10.11 - Right upper quadrant pain Discharge Date/Time: 08/04/20 17:24 Instructions: DI for Abdominal Pain-Adult, DI for Biliary Colic Activity Restrictions/Additional Instructions: As discussed, please follow-up with primary care provider as well as Gastroenterology as previously arranged. As discussed, your ultrasound on lab work came back today with no acute findings. Your ultrasound is suggestive of increased echotexture without specific abnormalities. Your symptoms are consistent with biliary colic. Please avoid fatty foods, deep fried foods etcetera. Please avoid things like apple pie, fatty meats, deep fried fatty foods, ice cream etcetera As discussed, please follow-up with primary care provider in GI regarding this. In the meantime I suggest avoiding things that can her ear liver such as alcohol or Tylenol or acetaminophen I have given you a prescription of Toradol. This is an NSAID. Do not combine it with other NSAIDs such as Aleve or ibuprofen. I suggest taking it with some food, as it can irritate your stomach. I sent this prescriptions [facility]. Please come back to the emergency department for any acute concerns such as abdominal pain with fever inability keep down fluids etcetera Prescriptions: New ketorolac 10 mg tablet 10 mg PO TID PRN (Reason: pain) Qty: 15 RF: 0 Referrals: Nicole Jefferosn ARNP [Primary Care Provider] - <Pb Moyer MD - Last Filed: 08/05/20 08:15> Cosign ED Attending Cosignature Attestation: I was immediately available in the department for consultation. This documentation has been reviewed and I agree with assessment and plan. Supervised by Pb Moyer MD
== END 2020-08-04 17:24 | disposition home or self-care (01) ==
PROVIDERS: Emergency Medicine; Emergency Provider Nurse Practitioner Family; PCP Nurse Practitioner Family
DX: K80.50 Calculus of bile duct without cholangitis or cholecystitis without obstruction (principal); R10.11 Right upper quadrant pain
CPT/HCPCS: 36415; 76705; 80053; 81003; 83690; 85025; 85610; 85730; 93005; 96361; 96374; 99284; J1885

== ENCOUNTER 2021-02-18 20:16 | Emergency (ER) | payer OTHER, SELFPAY ==
[2021-02-18 20:19] VITALS: BP 139/90; PULSE 83; RESP 12; TEMP 37.2; O2SAT 98; BMI 25.8
--- NOTE | 2021-02-18 20:42 | ED_ITS ---
HPI - Fever General Chief Complaint: Fever Stated Complaint: EXPO TO COVID SOB NAUSEA FEVER Time Seen by Provider: 02/18/21 20:30 Source: patient Mode of arrival: Ambulatory Limitations: no limitations History of Present Illness HPI Narrative: 45-year-old former smoker with history anxiety presents with a chief complaint of subjective fever, chills, headache, cough and shortness of breath. He states that his symptoms have been present for the past few days and he is here and concerned because he was exposed to somebody on Sunday that he later found out to be positive for COVID. He has had both of his vaccinations. He denies any other exposure. He denies any nausea, vomiting or diarrhea. He denies any significant chest pain or breathlessness. MD complaint: fever and weakness Onset (ago): hour(s) Maximum Temperature: 99 F Temperature Source: oral Context: sick contacts Associated symptoms: denies other symptoms Relieving factors: nothing Exacerbating factors: nothing Treatments prior to arrival fever: none Related Data Previous Rx's Medication Instructions Recorded ketorolac 10 mg PO TID PRN #15 tab 08/04/20 Allergies Allergy/AdvReac Type Severity Reaction Status Date / Time No Known Drug Allergies Allergy Verified 02/18/21 20:22 Review of Systems Constitutional Constitutional: Denies chills, Denies fatigue, Reports fever(s), Denies frequent falls, Denies lethargy and Denies weakness Eyes Eyes: Denies change in vision, Denies eye discharge, Denies irritation and Denies loss of vision ENT Ears, Nose, Mouth, and Throat: Denies change in voice, Reports dizziness, Denies neck pain, Denies sore throat and Denies throat swelling Cardiovascular Cardiovascular: Denies chest pain, Denies irregular heart rhythm, Denies lightheadedness, Denies palpitations, Reports dyspnea, Denies dyspnea on exertion and Denies orthopnea Respiratory Respiratory: Reports cough, Reports dyspnea, Denies dyspnea on exertion and Denies wheezing Gastrointestinal Gastrointestinal: Denies abdominal pain, Denies change in bowel habits, Denies diarrhea, Denies nausea and Denies vomiting Musculoskeletal Musculoskeletal: Denies neck pain and Denies numbness Integumentary/Breasts Skin/Breast: Denies pruritus, Denies erythema, Denies rash and Denies wounds Neurologic Neurologic: Denies behavioral changes, Denies confusion, Reports dizziness, Denies frequent falls, Denies loss of vision, Denies numbness and Denies weakness Psychiatric Psychiatric: Denies anxiety, Denies behavioral changes, Denies confusion, Denies depression, Denies homicidal ideation and Denies suicidal ideation Endocrine Endocrine: Denies fatigue, Denies flushing and Denies palpitations Hematologic/Lymphatic Hematologic/Lymphatic: Denies easy bruising Allergic/Immunologic Allergic/Immunologic: Denies urticaria, Denies throat swelling and Denies wheezing Patient History Social History Smoking Status: Former smoker Smoking Status: Former smoker alcohol intake frequency: 0-2 drinks per day Substance Use Type: does not use Exam Narrative Exam Narrative: GENERAL: [45] year old patient appears stated age. Well- nourished, well-developed patient, in mild distress. HEAD: Atraumatic. Normocephalic. EYES: Pupils equal round and reactive. Extraocular motions intact. No scleral icterus. No injection or drainage. ENT: Nose without bleeding, purulent drainage. Throat without erythema, tonsillar hypertrophy or exudate. There is [id number] clear postnasal drip Airway patent. NECK: Trachea midline. Non tender CARDIOVASCULAR: Regular rate and rhythm without murmurs, gallops, or rubs. RESPIRATORY: Clear to auscultation. Breath sounds equal bilaterally. No wheezes, rales, or rhonchi. GASTROINTESTINAL: Abdomen soft, non-tender, nondistended. EXTREMITIES: No edema or joint tenderness. BACK: Nontender without deformity or crepitance. No flank tenderness. NEURO: AOx3. SKIN: No rash or erythema of visible areas Initial Vital Signs Initial Vital Signs: Vital Signs Temperature 99.0 F 02/18/21 20:19 Pulse Rate 83 02/18/21 20:19 Respiratory Rate 12 02/18/21 20:19 Blood Pressure 139/90 02/18/21 20:19 Pulse Oximetry 98 02/18/21 20:19 Course Orders Ordered: ED Orders 02/18/21 20:25 COVID19 -Nasal swab/Pre-Proc Stat Vital Signs Vital signs: Vital Signs - 8 hr 02/18/21 20:19 Temperature 99.0 F Pulse Rate 83 Respiratory Rate 12 Blood Pressure 139/90 Pulse Oximetry 98 MDM - Fever Lab Data Labs: Lab Results 02/18/21 Range/Units 20:25 SARS-CoV-2 (PCR) Negative (Negative) MDM Narrative Medical decision making narrative: Patient is fully immunized and has a very reassuring story and exam. His COVID is negative, exam has no significant findings but minimal widespread symptoms would suggest perhaps a viral or allergic type scenario. Patient encouraged to follow closely with his primary care providers and has been given return precautions. Discharge Plan Departure Patient Disposition: Home Clinical Impression: Viral infection Instructions: DI for Fever (Symptom) -- Adult Activity Restrictions/Additional Instructions: *You have been diagnosed with [your symptoms are most likely due to a viral upper respiratory infection. Your COVID test was negative] *What to do: *Please continue to take your regular medications as directed. [ ] New medication prescriptions sent to your pharmacy: [ ] [ ] New medication written as a paper prescription [ ] No new medications given *Please follow up with your primary care provider in 2-3 days, call for an appointment. Let them know you were seen in the Emergency Department and that we ask that you be seen in follow up. We will electronically transmit a record of today's note if your PCP is in our system *If you do not have a primary care provider please contact the [facility] Resource line at [phone]. They will ask some questions about your medical history and help get you set up with a doctor in the community. *Return to Emergency Department if you should have any new, worsening or concerning symptoms, such as [fever greater than 101 F, shaking chills, worsening pain, persistent vomiting or other bothersome symptoms] Prescriptions: No Action ketorolac 10 mg tablet 10 mg PO TID PRN (Reason: pain) Qty: 15 RF: 0 Referrals: Nicole Jefferson ARNP [Primary Care Provider] -
[2021-02-18 20:48] LABS: COVID19 -Nasal RAPID Negative (Negative)
[2021-02-18 21:33] VITALS: BP 126/83; PULSE 81; RESP 12; TEMP 36.6; O2SAT 98
== END 2021-02-18 21:34 | disposition home or self-care (01) ==
PROVIDERS: Emergency Provider Emergency Medicine; PCP Nurse Practitioner Family
DX: B34.9 Viral infection, unspecified (principal); R06.02 Shortness of breath; Z20.822 Contact with and (suspected) exposure to COVID-19
CPT/HCPCS: 87635; 99281; 99282; C9803

== ENCOUNTER 2022-10-29 12:32 | Emergency (ER) | payer OTHER, SELFPAY ==
[2022-10-29 12:37] VITALS: BP 138/93; PULSE 99; RESP 18; TEMP 37.3; O2SAT 100; BMI 27.1
[2022-10-29 13:05] LABS: Add Manual Diff / Slide Review NO; Basophils Absolute Auto 0 /uL (0-100); Basophils Percent Auto 0.4 % (0-2); Eosinophils Absolute Auto 0 /uL (0-450); Eosinophils Percent Auto 0.2 % (2-4); Hematocrit 41.8 % (41-53); Hemoglobin 13.7 g/dL (13.5-17.5); Lymphocytes Absolute Auto 900 /uL (1100-4500); Lymphocytes Percent Auto 7.6 % (25-40); Mean Corpuscular HGB Conc 32.7 % (30-36); Mean Corpuscular Hemoglobin 28.1 PG (26-34); Mean Corpuscular Volume 86.1 fL (80-100); Monocytes Absolute Auto 1300 /uL (0-900); Monocytes Percent Auto 11.4 % (3-14); Neutrophils Absolute Auto 9500 /uL (1500-7000); Neutrophils Percent Auto 80.4 % (50-75); Platelet Count 287 X10^3/uL (150-400); Red Blood Cell Count 4.85 X10^6/uL (4.5-5.9); Red Cell Distribution Width 13.5 % (11.6-14.8); White Blood Cell Count 11.8 X10^3/uL (4.5-11.0)
[2022-10-29 13:13] LABS: COVID19 -Nasal RAPID Negative (Negative)
[2022-10-29 13:23] LABS: BUN Creatinine Ratio 15.3 (6-22); Blood Urea Nitrogen 9 mg/dL (9-20); Calcium 8.8 mg/dL (8.4-10.2); Carbon Dioxide 24 mmol/L (22-32); Chloride 101 mmol/L (98-107); Estimated Glomerular Filt Rate > 60 mL/min (>60); Glucose 121 mg/dL (70-100); HEMOLYSIS < 15 (0-50); Potassium 3.7 mmol/L (3.4-5.1); Sodium 136 mmol/L (137-145)
[2022-10-29 13:53] VITALS: BP 118/74; PULSE 90; RESP 17; TEMP 36.9; O2SAT 97
--- NOTE | 2022-10-29 15:13 | ED_ITS ---
HPI - Fever <Gisele Diaz PA-C - Last Filed: 10/29/22 16:13> General Chief Complaint: Fever Stated Complaint: Fever, headache, back/abd pain, chest pain Time Seen by Provider: 10/29/22 13:20 Source: patient Mode of arrival: Ambulatory History of Present Illness HPI Narrative: patient is 46 years old male without significant medical history, who presents today to ED with 2 days' worth of fever, which he has hard time to keep under control. He Tylenol ibuprofen 500 mg/600 mg with some relief fever goes down to 100 F however gradually increases. He denies sore throat, has some dry cough. no nausea vomiting diarrhea. Patient states that he has had exposure to potentially viral illness, his spouse as well as school age children were sick with congestion, fever however they all got better, and now patient fell ill with above symptoms. He also has slight headache. his appetite decreased. he tried to stay hydrated, denies urinary symptoms blood in urine. What concerns him the most is his back pain Across his entire lumbar spine. Onset (ago): day(s) (2) Relieving factors: acetaminophen, ibuprofen and rest Treatments prior to arrival fever: acetaminophen, ibuprofen and cold medicine ( TheraFlu) Related Data Previous Rx's Medication Instructions Recorded ketorolac 10 mg tablet 10 mg PO TID PRN pain #15 tabs 08/04/20 methocarbamol 500 mg tablet 500 mg PO TID #30 tabs 10/29/22 Allergies Allergy/AdvReac Type Severity Reaction Status Date / Time No Known Drug Allergies Allergy Verified 02/18/21 20:22 Review of Systems <Gisele Diaz PA-C - Last Filed: 10/29/22 16:13> Review of Systems Narrative: GENERAL: admits to chills, fatigue, malaise, fever, no sweats. HEENT: Denies sinus pain, ear pain, sore throat, difficulty swallowing, dizziness. RESPIRATORY: Denies dyspnea, cough, wheezing, hemoptysis, sputum. CARDIOVASCULAR: Denies chest pain, palpitations, orthopnea, edema, GASTROINTESTINAL: Denies nausea, vomiting, abdominal pain, diarrhea, constipation, melena. : Denies dysuria, frequency, incontinence, hematuria, urinary retention. MUSCULOSKELETAL: denies weakness, admits to generalizedjoint pain, and low back pain SKIN: Denies rash, skin lesions, or other lesion NEUROLOGIC: Denies weakness, has mild headache, deniesnumbness, change in speech, confusion, seizures, incoordination. PSYCHIATRIC: No concerning psychosocial issues. Patient History <Gisele Diaz PA-C - Last Filed: 10/29/22 16:13> Social History Smoking Status: Former smoker Smoking Status: Former smoker alcohol intake frequency: 0-2 drinks per day Substance Use Type: does not use Exam <Gisele Diaz PA-C - Last Filed: 10/29/22 16:13> Narrative Exam Narrative: GENERAL: 46 year old patient appears stated age. Well-developed patient, in no acute distress EYES: Pupils equal round and reactive. Extraocular motions intact. No scleral icterus. No injection or drainage. ENT: nasopharynx is with slight erythema, there is no tonsillar hypertrophy or exudate. Airway patent. NECK: Trachea midline. Non tender CARDIOVASCULAR: Regular rate and rhythm without murmurs, gallops, or rubs. RESPIRATORY: Clear to auscultation. Breath sounds equal bilaterally. No wheezes, rales, or rhonchi. GASTROINTESTINAL: Abdomen soft, non-tender, nondistended. no pelvic tenderness no flank tenderness EXTREMITIES: No edema or joint tenderness. BACK: Nontender without deformity or crepitance. No flank tenderness. NEURO: AOx3. no focal deficits SKIN: No rash or erythema of visible areas Initial Vital Signs Initial Vital Signs: Vital Signs Temperature 99.2 F 10/29/22 12:37 Pulse Rate 99 H 10/29/22 12:37 Respiratory Rate 18 10/29/22 12:37 Blood Pressure 138/93 H 10/29/22 12:37 Pulse Oximetry 100 10/29/22 12:37 Oxygen Delivery Method 10/29/22 12:37 <Melissa Rendon DO - Last Filed: 11/02/22 02:04> Initial Vital Signs Initial Vital Signs: Vital Signs Temperature 99.2 F 10/29/22 12:37 Pulse Rate 99 H 10/29/22 12:37 Respiratory Rate 18 10/29/22 12:37 Blood Pressure 138/93 H 10/29/22 12:37 Pulse Oximetry 100 10/29/22 12:37 Oxygen Delivery Method 10/29/22 12:37 Course <Gisele Diaz PA-C - Last Filed: 10/29/22 16:13> Orders Ordered: ED Orders 10/29/22 12:42 BMP [Basic Metabolic Panel] Stat CBC Auto Diff [Complete Blood Count AUTO DIFF] Stat COVID19 -Nasal RAPID/Pre-Proc Stat Vital Signs Vital signs: Vital Signs - 8 hr 10/29/22 12:37 10/29/22 13:53 10/29/22 15:29 Temperature 99.2 F 98.4 F Pulse Rate 99 H 90 90 Respiratory Rate 18 17 18 Blood Pressure 138/93 H 118/74 118/70 Pulse Oximetry 100 97 99 Oxygen Delivery Method Room Air Room Air <Melissa Rendon DO - Last Filed: 11/02/22 02:04> Orders Ordered: ED Orders 10/29/22 12:42 BMP [Basic Metabolic Panel] Stat CBC Auto Diff [Complete Blood Count AUTO DIFF] Stat COVID19 -Nasal RAPID/Pre-Proc Stat Vital Signs Vital signs: Vital Signs - 8 hr 10/29/22 12:37 10/29/22 13:53 10/29/22 15:29 Temperature 99.2 F 98.4 F Pulse Rate 99 H 90 90 Respiratory Rate 18 17 18 Blood Pressure 138/93 H 118/74 118/70 Pulse Oximetry 100 97 99 Oxygen Delivery Method Room Air Room Air MDM - Fever <KIMBERLY Santana Last Filed: 10/29/22 16:13> Lab Data Lab results narrative: labs reviewed and demonstrate slight leukocytosis which could be attributed to both viral and bacterial infection, chemistry profile was unremarkable 10/29/22 12:42 10/29/22 12:42 Labs: Lab Results 10/29/22 10/29/22 10/29/22 Range/Units 12:42 12:42 12:42 WBC 11.8 H (4.5-11.0) X10^3/uL RBC 4.85 (4.5-5.9) X10^6/uL Hgb 13.7 (13.5-17.5) g/dL Hct 41.8 (41-53) % MCV 86.1 (80-100) fL MCH 28.1 (26-34) PG MCHC 32.7 (30-36) % RDW 13.5 (11.6-14.8) % Plt Count 287 (150-400) X10^3/uL Neut % (Auto) 80.4 H (50-75) % Lymph % (Auto) 7.6 L (25-40) % [place] % (Auto) 11.4 (3-14) % Eos % (Auto) 0.2 L (2-4) % Baso % (Auto) 0.4 (0-2) % Neut # (Auto) 9500 H (7784-2145) /uL Lymph # (Auto) 900 L (8625-7582) /uL [place] # (Auto) 1300 H (0-900) /uL Eos # (Auto) 0 (0-450) /uL Baso # (Auto) 0 (0-100) /uL Sodium 136 L (137-145) mmol/L Potassium 3.7 (3.4-5.1) mmol/L Chloride 101 (98-107) mmol/L Carbon Dioxide 24 (22-32) mmol/L BUN 9 (9-20) mg/dL Creatinine 0.59 L (0.66-1.25) mg/dL Estimated GFR > 60 (>60) mL/min BUN/Creatinine Ratio 15.3 (6-22) Glucose 121 H (70-100) mg/dL Calcium 8.8 (8.4-10.2) mg/dL SARS-CoV-2 (PCR) Negative (Negative) Urine Dip Bedside Urine Glucose Negative Bedside Urine Bilirubin - Negative Bedside Urine Ketone - Negative Urine Specific [place] 1.005 Bedside Urine Occult Blood - Negative Bedside Urine pH 7.0 Bedside Urine Protein - Negative Bedside Urine Urobilinogen - Negative Bedside Urine Nitrite - Negative Bedside Urine Leukocytes - Negative Esterase MDM Narrative Medical decision making narrative: [] Multiple etiologies for patient's symptoms considered including, but not limited to: most likely viral illness, COVID-19 testing was negative however patient could have been exposed to multiple other viral infections. discussed with patient need for supportive care and increase fluids rest , use antipyretic, as needed,muscle relaxant for his back pain which seemed to be most bothersome symptom. Discussed with patient negative COVID-19 test, negative urinalysis. Prior Charts reviewed: Yes Labs reviewed and interpreted by myself: yes Patient's symptoms were stable over duration of stay patient remained afebrile Findings and discharge diagnosis discussed with patient followed by verbalization of understanding Return precautions discussed with patient/family whom verbalize understanding of diagnosis and plan <Melissa Rendon DO - Last Filed: 11/02/22 02:04> Lab Data Labs: Lab Results 10/29/22 10/29/22 10/29/22 Range/Units 12:42 12:42 12:42 WBC 11.8 H (4.5-11.0) X10^3/uL RBC 4.85 (4.5-5.9) X10^6/uL Hgb 13.7 (13.5-17.5) g/dL Hct 41.8 (41-53) % MCV 86.1 (80-100) fL MCH 28.1 (26-34) PG MCHC 32.7 (30-36) % RDW 13.5 (11.6-14.8) % Plt Count 287 (150-400) X10^3/uL Neut % (Auto) 80.4 H (50-75) % Lymph % (Auto) 7.6 L (25-40) % [place] % (Auto) 11.4 (3-14) % Eos % (Auto) 0.2 L (2-4) % Baso % (Auto) 0.4 (0-2) % Neut # (Auto) 9500 H (7926-8916) /uL Lymph # (Auto) 900 L (5029-3693) /uL [place] # (Auto) 1300 H (0-900) /uL Eos # (Auto) 0 (0-450) /uL Baso # (Auto) 0 (0-100) /uL Sodium 136 L (137-145) mmol/L Potassium 3.7 (3.4-5.1) mmol/L Chloride 101 (98-107) mmol/L Carbon Dioxide 24 (22-32) mmol/L BUN 9 (9-20) mg/dL Creatinine 0.59 L (0.66-1.25) mg/dL Estimated GFR > 60 (>60) mL/min BUN/Creatinine Ratio 15.3 (6-22) Glucose 121 H (70-100) mg/dL Calcium 8.8 (8.4-10.2) mg/dL SARS-CoV-2 (PCR) Negative (Negative) Urine Dip Bedside Urine Glucose Negative Bedside Urine Bilirubin - Negative Bedside Urine Ketone - Negative Urine Specific [place] 1.005 Bedside Urine Occult Blood - Negative Bedside Urine pH 7.0 Bedside Urine Protein - Negative Bedside Urine Urobilinogen - Negative Bedside Urine Nitrite - Negative Bedside Urine Leukocytes - Negative Esterase Discharge Plan Departure Patient Disposition: Home Clinical Impression: Viral infection, Fever and chills, Myalgia Instructions: DI for Fever (Symptom) -- Adult, DI for Headache Activity Restrictions/Additional Instructions: *You have been diagnosed with viral illness which triggers headache, body aches, cough and other symptoms *What to do: *Please continue to take your regular medications as directed. New medication prescriptions sent to your pharmacy: metocarbamol 500 mg three times a day for body aches continue With [id number] medications like Tylenol, ibuprofen to reduce body temperature. Advised to increase rest and fluid intake. *Please follow up with your primary care provider in 2-3 days, call for an appointment. Let them know you were seen in the Emergency Department and that we ask that you be seen in follow up. We will electronically transmit a record of today's note if your PCP is in our system *If you do not have a primary care provider please contact the [facility] Resource line at [phone]. They will ask some questions about your medical history and help get you set up with a doctor in the community. *Return to Emergency Department if you should have any new, worsening or concerning symptoms, such as Fever greater than 103 F shaking chills, worsening pain, persistent vomiting or other bothersome symptoms Prescriptions: New methocarbamol 500 mg tablet 500 mg PO TID Qty: 30 0RF No Action ketorolac 10 mg tablet 10 mg PO TID PRN (Reason: pain) Qty: 15 0RF Referrals: Nicole Jefferson ARNP [Primary Care Provider] - Stand Alone Forms: Patient Portal/API <Melissa Rendon DO - Last Filed: 11/02/22 02:04> Cosign ED Attending Nuzhatature Attestation: I was immediately available in the department for consultation. Documentation has been reviewed.
--- NOTE | 2022-10-29 15:28 | PC.NURSE ---
pt tolerating po drinking water and gingerale
[2022-10-29 15:29] VITALS: BP 118/70; PULSE 90; RESP 18; O2SAT 99
== END 2022-10-29 15:42 | disposition home or self-care (01) ==
PROVIDERS: Emergency Medicine; Emergency Provider Physician Assistant Medical; PCP Nurse Practitioner Family
DX: M54.50 Low back pain, unspecified (principal); B34.9 Viral infection, unspecified; R50.9 Fever, unspecified; R51.9 Headache, unspecified; Z20.822 Contact with and (suspected) exposure to COVID-19
CPT/HCPCS: 80048; 81003; 85025; 87635; 99282; C9803

== ENCOUNTER 2023-03-28 09:35 | Emergency (ER) | payer OTHER, SELFPAY ==
[2023-03-28] VITALS (8 sets, daily range): BP systolic 115–139; BP diastolic 72–93; PULSE 74–96; RESP 18; TEMP 36.8; O2SAT 93–98; BMI 27.0
--- NOTE | 2023-03-28 09:55 | ED_ITS ---
HPI - General Adult General Chief complaint: Abdominal Pain Stated complaint: R/ low side pain Time Seen by Provider: 03/28/23 09:52 Source: patient Mode of arrival: Ambulatory History of Present Illness HPI narrative: 47-year-old male who is here for evaluation of right lower quadrant/right flank pain. He states that he is had pain like this off and on for more than a year and has seen his primary doctor for these symptoms and has been using lidocaine patches. He states he is had an ultrasound without a specific diagnosis. He is never had CT scan. He states that the discomfort that the symptoms he is having now is just worse than normal. It does radiate from his right flank down to his right groin. No urinary symptoms. No change in bowel habits. Is having some nausea no vomiting. Related Data Previous Rx's Medication Instructions Recorded ketorolac 10 mg tablet 10 mg PO TID PRN pain #15 tabs 08/04/20 methocarbamol 500 mg tablet 500 mg PO TID #30 tabs 10/29/22 Allergies Allergy/AdvReac Type Severity Reaction Status Date / Time No Known Drug Allergies Allergy Verified 02/18/21 20:22 Review of Systems Constitutional Constitutional: Reports system reviewed and no additional complaints, except as documented Gastrointestinal Gastrointestinal: Reports system reviewed and no additional complaints, except as documented Genitourinary Genitourinary: Reports system reviewed and no additional complaints, except as documented Musculoskeletal Musculoskeletal: Reports system reviewed and no additional complaints, except as documented Integumentary/Breasts Skin/Breast: Reports system reviewed and no additional complaints, except as documented Patient History Social History Smoking Status: Former smoker Smoking Status: Former smoker alcohol intake frequency: 0-2 drinks per day Substance Use Type: does not use Exam Initial Vital Signs Initial Vital Signs: Vital Signs Pulse Rate 86 03/28/23 09:39 Blood Pressure 139/93 H 03/28/23 09:39 Pulse Oximetry 97 03/28/23 09:39 GI Inspection: normal to inspection and non-distended Palpation: soft, No firm, No guarding and tender Back/Spine/Pelvis Back: No CVA tenderness Skin General: no rashes or lesions noted Neuro General: patient alert, patient awake and moves all extremities Extrem General: capillary refill normal Course Orders Ordered: ED Orders 03/28/23 09:45 Complete Blood Count AUTO DIFF Stat Comprehensive Metabolic Panel Stat Lipase Stat 03/28/23 09:56 CT abdomen pelvis w con Stat Discontinued Medications Hydrocodone Bitart/Acetaminophen (Hydrocodone/Acet 5/325 Tablet) 1 tab PO NOW ONE Stop: 03/28/23 09:57 Last Admin: 03/28/23 10:03 Dose: 1 tab Documented By: COREY Vital Signs Vital signs: Vital Signs - 8 hr 03/28/23 09:45 03/28/23 09:39 03/28/23 09:39 Temperature 98.2 F Pulse Rate 95 H 86 Respiratory Rate 18 Blood Pressure 139/93 H 139/93 H Pulse Oximetry 98 97 Oxygen Delivery Method Room Air 03/28/23 10:01 Temperature Pulse Rate 74 Respiratory Rate Blood Pressure Pulse Oximetry 95 Oxygen Delivery Method Medical Decision Making Lab Data Lab results reviewed: Yes I reviewed the patient's lab results. 03/28/23 09:45 03/28/23 09:45 Labs: Lab Results 03/28/23 03/28/23 Range/Units 09:45 09:45 WBC 4.7 (4.5-11.0) X10^3/uL RBC 4.99 (4.5-5.9) X10^6/uL Hgb 14.4 (13.5-17.5) g/dL Hct 42.6 (41-53) % MCV 85.2 (80-100) fL MCH 28.8 (26-34) PG MCHC 33.8 (30-36) % RDW 13.3 (11.6-14.8) % Plt Count 327 (150-400) X10^3/uL Neut % (Auto) 59.9 (50-75) % Lymph % (Auto) 26.6 (25-40) % [place] % (Auto) 11.0 (3-14) % Eos % (Auto) 1.3 L (2-4) % Baso % (Auto) 1.2 (0-2) % Neut # (Auto) 2800 (8682-2446) /uL Lymph # (Auto) 1200 (4835-2050) /uL [place] # (Auto) 500 (0-900) /uL Eos # (Auto) 100 (0-450) /uL Baso # (Auto) 100 (0-100) /uL Sodium 138 (137-145) mmol/L Potassium 4.1 (3.4-5.1) mmol/L Chloride 104 (98-107) mmol/L Carbon Dioxide 29 (22-32) mmol/L BUN 15 (9-20) mg/dL Creatinine 0.69 (0.66-1.25) mg/dL Estimated GFR > 60 (>60) mL/min BUN/Creatinine Ratio 21.7 (6-22) Glucose 101 H (70-100) mg/dL Calcium 9.2 (8.4-10.2) mg/dL Total Bilirubin 0.5 (0.2-1.3) mg/dL AST 24 (17-59) IU/L ALT 28 (<50) IU/L Alkaline Phosphatase 89 (38-126) U/L Total Protein 8.1 (6.3-8.2) g/dL Albumin 4.5 (3.5-5.0) g/dL Globulin 3.6 (1.7-4.1) g/dL Albumin/Globulin Ratio 1.3 (1.0-2.8) Lipase 45 (23-300) U/L Urine Dip Bedside Urine Glucose Negative Bedside Urine Bilirubin - Negative Bedside Urine Ketone - Negative Urine Specific [place] 1.010 Bedside Urine Occult Blood - Negative Bedside Urine pH 7.5 Bedside Urine Protein - Negative Bedside Urine Urobilinogen - Negative Bedside Urine Nitrite - Negative Bedside Urine Leukocytes - Negative Esterase Point of care testing: Urine Dip Bedside Urine Glucose Negative Bedside Urine Bilirubin - Negative Bedside Urine Ketone - Negative Urine Specific [place] 1.010 Bedside Urine Occult Blood - Negative Bedside Urine pH 7.5 Bedside Urine Protein - Negative Bedside Urine Urobilinogen - Negative Bedside Urine Nitrite - Negative Bedside Urine Leukocytes - Negative Esterase Imaging Data CT scan - abdomen/pelvis: Radiologist's Impression: PROCEDURE:? CT ABDOMEN PELVIS W CON ? INDICATIONS:? RLQ abd pain ? TECHNIQUE:? After the administration of intravenous contrast, axial sections acquired from the lung bases to the pubic symphysis.? Coronal and sagittal reformats were performed.? For radiation dose reduction, the following was used:? automated exposure control, adjustment of mA and/or kV according to patient size.? ? COMPARISON:? None. ? FINDINGS:? Image quality:? Excellent.? ? Lung bases:? Left Bochdalek hernia containing fat. Heart:? No significant findings. ? ABDOMEN: Liver:? Unremarkable.? ? Gallbladder:? Absent.? ? Biliary ducts:? Unremarkable.? ? Pancreas:? Unremarkable.? ? Spleen:? Unremarkable.? ? Adrenal Glands:? Unremarkable.? ? Kidneys and Ureters:? No complex renal cystic lesions which require follow-up.? No nephrolithiasis.? No hydronephrosis. ? Stomach and Bowel:? Stomach, small bowel loops, and colon are unremarkable.? Normal appendix.? Submucosal fat deposition the large bowel and distal small bowel, non-specific in the absence inflammatory bowel disease history. Peritoneum:? No abnormal intraperitoneal fluid.? No free air.? ? Ventral Wall: ? No hernias.? Abdominal Nodes:? No retroperitoneal or mesenteric adenopathy by size criteria.? Vessels:? Aorta and inferior vena cava are normal in size.? ? PELVIS: Pelvic Organs:? Unremarkable.? ? Bladder:? Submucosal fat deposition.? ? Pelvic Nodes: No enlarged lymph nodes.? Miscellaneous:? Trace left inguinal hernia containing fat.? Prior right inguinal hernia repair. ? Bones:? Unremarkable.? IMPRESSION:? No acute findings to explain the patient's abdominal pain.? Normal appendix.? No nephrolithiasis. ? Submucosal fat deposition of the bladder, typically caused by a chronic inflammatory process. ? Trace left inguinal hernia containing fat.? MDM Narrative Medical decision making narrative: CT scan does not show any signs of acute pathology. No skin changes over the area concerning for zoster. He did have a colonoscopy and upper endoscopy 2 years ago and was told to come back in 10 years. He is no urinary symptoms. No signs of urinary tract infection. No signs of appendicitis. No signs of kidney stones. Low suspicion for pyelo. Unsure the exact etiology. He does have lidocaine patches at home. Will discharge home with instructions to follow-up with primary doctor. Patient expressed understanding and agreement. Discharge Plan Departure Patient Disposition: Home Clinical Impression: Abdominal pain Instructions: DI for Abdominal Pain-Adult Activity Restrictions/Additional Instructions: I do recommend that you continue with the lidocaine patches. I also recommend that you contact your primary doctor for a follow-up. Return to the emergency department for new or worsening symptoms. Prescriptions: No Action methocarbamol 500 mg tablet 500 mg PO TID Qty: 30 0RF ketorolac 10 mg tablet 10 mg PO TID PRN (Reason: pain) Qty: 15 0RF Referrals: Nicole Jefferson ARNP [Primary Care Provider] - Stand Alone Forms: Patient Portal/API
--- NOTE | 2023-03-28 09:56 | DI.CT.S_ITS ---
PROCEDURE: CT ABDOMEN PELVIS W CON INDICATIONS: RLQ abd pain TECHNIQUE: After the administration of intravenous contrast, axial sections acquired from the lung bases to the pubic symphysis. Coronal and sagittal reformats were performed. For radiation dose reduction, the following was used: automated exposure control, adjustment of mA and/or kV according to patient size. COMPARISON: None. FINDINGS: Image quality: Excellent. Lung bases: Left Bochdalek hernia containing fat. Heart: No significant findings. ABDOMEN: Liver: Unremarkable. Gallbladder: Absent. Biliary ducts: Unremarkable. Pancreas: Unremarkable. Spleen: Unremarkable. Adrenal Glands: Unremarkable. Kidneys and Ureters: No complex renal cystic lesions which require follow-up. No nephrolithiasis. No hydronephrosis. Stomach and Bowel: Stomach, small bowel loops, and colon are unremarkable. Normal appendix. Submucosal fat deposition the large bowel and distal small bowel, non-specific in the absence inflammatory bowel disease history. Peritoneum: No abnormal intraperitoneal fluid. No free air. Ventral Wall: No hernias. Abdominal Nodes: No retroperitoneal or mesenteric adenopathy by size criteria. Vessels: Aorta and inferior vena cava are normal in size. PELVIS: Pelvic Organs: Unremarkable. Bladder: Submucosal fat deposition. Pelvic Nodes: No enlarged lymph nodes. Miscellaneous: Trace left inguinal hernia containing fat. Prior right inguinal hernia repair. Bones: Unremarkable. IMPRESSION: No acute findings to explain the patient's abdominal pain. Normal appendix. No nephrolithiasis. Submucosal fat deposition of the bladder, typically caused by a chronic inflammatory process. Trace left inguinal hernia containing fat. Dictated by: Earl Wolf M.D. on 03/28/2023 at 11:20 Approved by: Earl Wolf M.D. on 03/28/2023 at 11:25
[2023-03-28] MEDS: HYDROCODONE/ACET 5/325 TABLET 1 TAB PO (10:03)
[2023-03-28 10:09] LABS: Add Manual Diff / Slide Review NO; Basophils Absolute Auto 100 /uL (0-100); Basophils Percent Auto 1.2 % (0-2); Eosinophils Absolute Auto 100 /uL (0-450); Eosinophils Percent Auto 1.3 % (2-4); Hematocrit 42.6 % (41-53); Hemoglobin 14.4 g/dL (13.5-17.5); Lymphocytes Absolute Auto 1200 /uL (1100-4500); Lymphocytes Percent Auto 26.6 % (25-40); Mean Corpuscular HGB Conc 33.8 % (30-36); Mean Corpuscular Hemoglobin 28.8 PG (26-34); Mean Corpuscular Volume 85.2 fL (80-100); Monocytes Absolute Auto 500 /uL (0-900); Neutrophils Absolute Auto 2800 /uL (1500-7000); Neutrophils Percent Auto 59.9 % (50-75); Platelet Count 327 X10^3/uL (150-400); Red Blood Cell Count 4.99 X10^6/uL (4.5-5.9); Red Cell Distribution Width 13.3 % (11.6-14.8); White Blood Cell Count 4.7 X10^3/uL (4.5-11.0)
[2023-03-28 10:21] LABS: Alanine Aminotransferase 28 IU/L (<50); Albumin 4.5 g/dL (3.5-5.0); Albumin Globulin Ratio 1.3 (1.0-2.8); Alkaline Phosphatase 89 U/L (38-126); Aspartate Aminotransferase 24 IU/L (17-59); BUN Creatinine Ratio 21.7 (6-22); Bilirubin Total 0.5 mg/dL (0.2-1.3); Blood Urea Nitrogen 15 mg/dL (9-20); Calcium 9.2 mg/dL (8.4-10.2); Carbon Dioxide 29 mmol/L (22-32); Chloride 104 mmol/L (98-107); Estimated Glomerular Filt Rate > 60 mL/min (>60); Globulin 3.6 g/dL (1.7-4.1); Glucose 101 mg/dL (70-100); HEMOLYSIS < 15 (0-50); Lipase 45 U/L (23-300); Potassium 4.1 mmol/L (3.4-5.1); Sodium 138 mmol/L (137-145); Total Protein 8.1 g/dL (6.3-8.2)
== END 2023-03-28 12:00 | disposition home or self-care (01) ==
PROVIDERS: Emergency Provider Emergency Medicine; PCP Nurse Practitioner Family
DX: R10.31 Right lower quadrant pain (principal)
CPT/HCPCS: 36415; 74177; 80053; 81003; 83690; 85025; 99283; 99284; Q9967

== ENCOUNTER 2023-04-21 09:15 | Emergency (ER) | payer OTHER, SELFPAY ==
[2023-04-21 09:27] VITALS: BP 154/90; PULSE 101; RESP 17; TEMP 36.6; O2SAT 99; BMI 27.3
[2023-04-21 09:36] VITALS: PULSE 85; RESP 18; O2SAT 99
[2023-04-21 09:37] VITALS: BP 127/78; PULSE 83; RESP 22; O2SAT 98
--- NOTE | 2023-04-21 09:45 | DI.RAD.S_ITS ---
PROCEDURE: XR CHEST 1V INDICATIONS: chest pain TECHNIQUE: One view of the chest was acquired. COMPARISON: [facility], CR, XR CHEST 2V, 02/20/2018, 13:02. FINDINGS: Surgical changes and devices: None. Lungs and pleura: Lungs are clear. No pleural effusions or pneumothorax. Mediastinum: Mediastinal contours appear normal. Heart size is normal. Bones and chest wall: No suspicious bony lesions. Overlying soft tissues appear unremarkable. IMPRESSION: No acute cardiopulmonary abnormalities or focal airspace disease. Dictated by: Leonardo Pugh M.D. on 04/21/2023 at 9:23 Approved by: Leonardo Pugh M.D. on 04/21/2023 at 9:23
[2023-04-21 09:54] LABS: INR 1.1 (0.9-1.3)
[2023-04-21 09:55] LABS: Add Manual Diff / Slide Review NO; Basophils Absolute Auto 100 /uL (0-100); Basophils Percent Auto 1.1 % (0-2); Eosinophils Absolute Auto 100 /uL (0-450); Eosinophils Percent Auto 1.7 % (2-4); Hematocrit 42.2 % (41-53); Hemoglobin 14.4 g/dL (13.5-17.5); Lymphocytes Absolute Auto 1100 /uL (1100-4500); Lymphocytes Percent Auto 23.3 % (25-40); Mean Corpuscular HGB Conc 34.1 % (30-36); Mean Corpuscular Hemoglobin 28.9 PG (26-34); Mean Corpuscular Volume 84.9 fL (80-100); Monocytes Absolute Auto 600 /uL (0-900); Monocytes Percent Auto 11.8 % (3-14); Neutrophils Absolute Auto 2900 /uL (1500-7000); Neutrophils Percent Auto 62.1 % (50-75); Platelet Count 293 X10^3/uL (150-400); Red Blood Cell Count 4.97 X10^6/uL (4.5-5.9); Red Cell Distribution Width 13.5 % (11.6-14.8); White Blood Cell Count 4.7 X10^3/uL (4.5-11.0)
[2023-04-21 09:56] LABS: PTT Partial Thromboplastin Tim 37 SECONDS (26-36)
[2023-04-21 09:59] LABS: Alanine Aminotransferase 33 IU/L (<50); Albumin 4.3 g/dL (3.5-5.0); Albumin Globulin Ratio 1.3 (1.0-2.8); Alkaline Phosphatase 83 U/L (38-126); Aspartate Aminotransferase 30 IU/L (17-59); BUN Creatinine Ratio 14.6 (6-22); Bilirubin Total 0.6 mg/dL (0.2-1.3); Blood Urea Nitrogen 12 mg/dL (9-20); Calcium 9.3 mg/dL (8.4-10.2); Carbon Dioxide 28 mmol/L (22-32); Chloride 103 mmol/L (98-107); Creatine Kinase 84 U/L (55-170); Estimated Glomerular Filt Rate > 60 mL/min (>60); Globulin 3.4 g/dL (1.7-4.1); Glucose 84 mg/dL (70-100); HEMOLYSIS < 15 (0-50); Lipase 47 U/L (23-300); Magnesium 2.1 mg/dL (1.6-2.3); Potassium 4.3 mmol/L (3.4-5.1); Sodium 139 mmol/L (137-145); Total Protein 7.7 g/dL (6.3-8.2)
[2023-04-21 10:00] VITALS: BP 123/74; PULSE 85; RESP 18; O2SAT 98
[2023-04-21 10:10] LABS: Troponin I < 0.012 ng/mL (0.01-0.034)
--- NOTE | 2023-04-21 10:23 | ED_ITS ---
HPI - Chest Pain General Chief Complaint: Chest Pain Stated Complaint: Chest pain Time Seen by Provider: 04/21/23 10:07 Source: patient Mode of arrival: Ambulatory History of Present Illness HPI narrative: Patient 47-year-old healthy male who presents today palpitations. He reports that he drank an energy drink yesterday with about 300 mg of caffeine something that is very atypical for him but he has been pretty tired. Then had his normal cup cappuccino in the afternoon. Last night he felt palpitations and fluttering in his chest. He was able to sleep. He is not passed out. He denies any nausea or vomiting or abdominal pain. He is overall feeling better. Vitals are stable, mild hypertension 154/90 with a heart rate of 101. Related Data Previous Rx's Medication Instructions Recorded ketorolac 10 mg tablet 10 mg PO TID PRN pain #15 tabs 08/04/20 methocarbamol 500 mg tablet 500 mg PO TID #30 tabs 10/29/22 Allergies Allergy/AdvReac Type Severity Reaction Status Date / Time No Known Drug Allergies Allergy Verified 02/18/21 20:22 Review of Systems Review of Systems ROS Unobtainable: All systems reviewed & are unremarkable except as noted in HPI and below Patient History Social History Smoking Status: Former smoker Smoking Status: Former smoker alcohol intake frequency: 0-2 drinks per day Substance Use Type: does not use Exam Initial Vital Signs Initial Vital Signs: Vital Signs Temperature 97.9 F 04/21/23 09:27 Pulse Rate 101 H 04/21/23 09:27 Respiratory Rate 17 04/21/23 09:27 Blood Pressure 154/90 H 04/21/23 09:27 Pulse Oximetry 99 04/21/23 09:27 Oxygen Delivery Method Room Air 04/21/23 09:27 GENERAL: Alert very pleasant 47-year-old male and in no acute distress. HEENT: Head atraumatic,EOMI, pupils reactive, face symmetric, moist mucous membranes CARDIOVASCULAR: Regular rate and rhythm without murmurs, rubs or gallops. RESPIRATORY: Breath sounds equal bilaterally, no wheezes rales or rhonchi. ABDOMEN: Soft, nontender. Normoactive bowel sounds all 4 quadrants. No guarding or rebound. EXTREMITIES: Normal range of motion, no clubbing or edema. Neurovascularly intact NEUROLOGICAL: Alert and oriented x4. SKIN: Warm, dry, no laceration, no petechiae, no rashes or lesions. Course Orders Ordered: ED Orders 04/21/23 09:26 EKG-12 Lead Routine 04/21/23 09:45 XR chest 1V Stat Complete Blood Count AUTO DIFF Stat Comprehensive Metabolic Panel Stat Lipase Stat Magnesium Stat PTT Partial Thromboplastin Stas Stat Prothrombin Time INR Stat Troponin & CK Cardiac Panel Stat Vital Signs Vital signs: Vital Signs - 8 hr 04/21/23 09:27 04/21/23 09:36 04/21/23 09:37 Temperature 97.9 F Pulse Rate 101 H 85 Respiratory Rate 17 18 Blood Pressure 154/90 H 127/78 Pulse Oximetry 99 99 Oxygen Delivery Method Room Air 04/21/23 09:37 04/21/23 10:00 04/21/23 10:00 Temperature Pulse Rate 83 85 Respiratory Rate 22 18 Blood Pressure 123/74 Pulse Oximetry 98 98 Oxygen Delivery Method 04/21/23 10:30 04/21/23 10:30 Temperature Pulse Rate 79 Respiratory Rate 15 Blood Pressure 128/79 Pulse Oximetry 98 Oxygen Delivery Method MDM - Chest Pain Lab Data 04/21/23 09:45 04/21/23 09:45 Labs: Lab Results 04/21/23 04/21/23 04/21/23 Range/Units 09:45 09:45 09:45 WBC 4.7 (4.5-11.0) X10^3/uL RBC 4.97 (4.5-5.9) X10^6/uL Hgb 14.4 (13.5-17.5) g/dL Hct 42.2 (41-53) % MCV 84.9 (80-100) fL MCH 28.9 (26-34) PG MCHC 34.1 (30-36) % RDW 13.5 (11.6-14.8) % Plt Count 293 (150-400) X10^3/uL Neut % (Auto) 62.1 (50-75) % Lymph % (Auto) 23.3 L (25-40) % Mcminn % (Auto) 11.8 (3-14) % Eos % (Auto) 1.7 L (2-4) % Baso % (Auto) 1.1 (0-2) % Neut # (Auto) 2900 (4406-0185) /uL Lymph # (Auto) 1100 (6334-1914) /uL Mcminn # (Auto) 600 (0-900) /uL Eos # (Auto) 100 (0-450) /uL Baso # (Auto) 100 (0-100) /uL PT 13.0 H (10.1-12.7) SECONDS INR 1.1 (0.9-1.3) APTT 37 H (26-36) SECONDS Sodium 139 (137-145) mmol/L Potassium 4.3 (3.4-5.1) mmol/L Chloride 103 (98-107) mmol/L Carbon Dioxide 28 (22-32) mmol/L BUN 12 (9-20) mg/dL Creatinine 0.82 (0.66-1.25) mg/dL Estimated GFR > 60 (>60) mL/min BUN/Creatinine Ratio 14.6 (6-22) Glucose 84 (70-100) mg/dL Calcium 9.3 (8.4-10.2) mg/dL Magnesium 2.1 (1.6-2.3) mg/dL Total Bilirubin 0.6 (0.2-1.3) mg/dL AST 30 (17-59) IU/L ALT 33 (<50) IU/L Alkaline Phosphatase 83 (38-126) U/L Total Creatine Kinase 84 (55-170) U/L Troponin I < 0.012 (0.01-0.034) ng/mL Total Protein 7.7 (6.3-8.2) g/dL Albumin 4.3 (3.5-5.0) g/dL Globulin 3.4 (1.7-4.1) g/dL Albumin/Globulin Ratio 1.3 (1.0-2.8) Lipase 47 (23-300) U/L Urine Dip Bedside Urine Glucose Negative Bedside Urine Bilirubin - Negative Bedside Urine Ketone - Negative Urine Specific [place] 1.000 Bedside Urine Occult Blood - Negative Bedside Urine pH 7.0 Bedside Urine Protein - Negative Bedside Urine Urobilinogen - Negative Bedside Urine Nitrite - Negative Bedside Urine Leukocytes - Negative Esterase Imaging Data Chest x-ray: Radiologist's Impression: PROCEDURE:? XR CHEST 1V ? INDICATIONS:? chest pain ? TECHNIQUE:? One view of the chest was acquired.? ? COMPARISON:? [facility], CR, XR CHEST 2V, 02/20/2018, 13:02. ? FINDINGS:? ? Surgical changes and devices:? None.? ? Lungs and pleura:? Lungs are clear.? No pleural effusions or pneumothorax.? ? Mediastinum:? Mediastinal contours appear normal.? Heart size is normal.? ? Bones and chest wall:? No suspicious bony lesions.? Overlying soft tissues appear unremarkable.? ? IMPRESSION:? No acute cardiopulmonary abnormalities or focal airspace disease. ? Dictated by: Leonardo Pugh M.D. on 04/21/2023 at 9:23 ? ? ECG Data Interpretation: Sinus rhythm rate 83 ME interval 148 QRS [address] changes MDM Narrative Medical decision making narrative: Patient healthy 47-year-old male presenting to palpitations. This is likely secondary to caffeine intake yesterday. He is in a normal sinus rhythm today vitals have improved since sitting in emergency department. Blood work is overall reassuring without any clinical significant abnormalities. Vitals are stable. Sinus symptoms are not concerning for any acute coronary syndrome. He is a negative troponin. Is also highly unlikely to be pulmonary embolism although was considered. Chest x-ray is clear. Symptoms most consistent with caffeine intake and palpitations. Discharge Plan Departure Patient Disposition: Home Clinical Impression: Palpitations Instructions: DI for Palpitations Activity Restrictions/Additional Instructions: *You have been diagnosed with palpitations *What to do: At this time avoid caffeine today. Certainly do not drink as much caffeine ever again. *Continue to take medications as directed *Follow up with your primary care provider in 2-3 days or call [phone] *Return to ER if you should have increasing palpitations dizziness lig htheadedness passing or any new, worsening or concerning symptoms Prescriptions: No Action methocarbamol 500 mg tablet 500 mg PO TID Qty: 30 0RF ketorolac 10 mg tablet 10 mg PO TID PRN (Reason: pain) Qty: 15 0RF Referrals: Nicole Jefferson ARNP [Primary Care Provider] - Stand Alone Forms: Patient Portal/API
[2023-04-21 10:30] VITALS: BP 128/79; PULSE 79; RESP 15; O2SAT 98
--- NOTE | 2023-04-21 10:38 | PC.NURSE ---
Pt reports consuming excessive amounts of caffeine yesterday via energy drinks in the afternoon and espresso last night.
== END 2023-04-21 11:01 | disposition home or self-care (01) ==
PROVIDERS: Emergency Provider Emergency Medicine; PCP Nurse Practitioner Family
DX: R00.2 Palpitations (principal); R07.9 Chest pain, unspecified
CPT/HCPCS: 36415; 71045; 80053; 81003; 82550; 83690; 83735; 84484; 85025; 85610; 85730; 93005; 99283; 99284

== ENCOUNTER 2023-11-07 03:17 | Emergency (ER) | payer OTHER, SELFPAY ==
[2023-11-07] VITALS (10 sets, daily range): BP systolic 112–155; BP diastolic 65–102; PULSE 70–119; RESP 16–18; TEMP 36.3; O2SAT 92–98; BMI 28.1
--- NOTE | 2023-11-07 03:29 | DI.CT.S_ITS ---
PROCEDURE: CT ABDOMEN PELVIS W CON INDICATIONS: RLQ pain TECHNIQUE: After the administration of intravenous contrast, axial sections acquired from the lung bases to the pubic symphysis. Coronal and sagittal reformats were performed. For radiation dose reduction, the following was used: automated exposure control, adjustment of mA and/or kV according to patient size. COMPARISON: [facility], CT, CT ABDOMEN PELVIS W CON, 03/28/2023, 10:03. FINDINGS: Image quality: Diagnostic. Lower Chest: No significant findings. Small left Bochdalek hernia containing fat. ABDOMEN: Liver: No solid mass. Scattered subcentimeter hypoattenuating lesions, too small to characterize by CT but probably small cysts. Gallbladder: Absent. Biliary ducts: No biliary dilation. Pancreas: No ductal dilation. Spleen: Size is within normal limits. Adrenal Glands: No adrenal nodules. Kidneys and Ureters: No hydronephrosis. No solid mass. No complex renal cystic lesion which requires follow up. Bosniak 2 cyst on the superior pole of the left kidney, requiring no further follow-up. Stomach and Bowel: Normal colonic caliber, without significant wall thickening. Normal appendix. Peritoneum: No abnormal intraperitoneal fluid. No free air. Ventral Wall: No significant ventral hernia. Abdominal Nodes: No retroperitoneal or mesenteric adenopathy by size criteria. Vessels: Aorta and inferior vena cava are normal in size. PELVIS: Pelvic Organs: Unremarkable. Bladder: Diffuse bladder wall thickening. Pelvic Nodes: No enlarged lymph nodes. Miscellaneous: No inguinal hernias are seen. Prior right inguinal hernia repair Bones: No aggressive osseous abnormality. IMPRESSION: Normal appendix. Diffuse urinary bladder wall thickening, concerning for cystitis. Agree with preliminary report. Dictated by: Earl Wolf M.D. on 11/07/2023 at 8:02 Approved by: Earl Wolf M.D. on 11/07/2023 at 8:06
--- NOTE | 2023-11-07 03:31 | ED.ABDPAIN ---
HPI - Abdominal Pain General Chief Complaint: Abdominal Pain Stated Complaint: abd pain Time Seen by Provider: 11/07/23 03:29 Source: patient Mode of arrival: Ambulatory History of Present Illness HPI narrative: Patient is a 47-year-old male with history of chronic back pain and abdominal pain presents today with worsening abdominal pain. He reports that he has had right lower quadrant pain ongoing for quite long time he has about 1 more week and then he goes to [place] [facility] hernia clinic. Supposedly they think that there is a hernia they just can not quite find it. He uses lidocaine patches to help pain. He reports that he went to bed normal but woke up with severe pain which is very atypical for him. No nausea or vomiting. He has previously had a cholecystectomy but still has appendix He was last seen here 03/20/[address] at that time but has not come to the ED frequently. He has no chest pain fever chills or other symptoms Related Data Previous Rx's Medication Instructions Recorded ketorolac 10 mg tablet 10 mg PO TID PRN pain #15 tabs 08/04/20 methocarbamol 500 mg tablet 500 mg PO TID #30 tabs 10/29/22 Allergies Allergy/AdvReac Type Severity Reaction Status Date / Time No Known Drug Allergies Allergy Verified 02/18/21 20:22 Patient History Social History Smoking Status: Former smoker Smoking Status: Former smoker alcohol intake frequency: 0-2 drinks per day Substance Use Type: does not use and marijuana Exam Initial Vital Signs Initial Vital Signs: Vital Signs Pulse Rate 119 H 11/07/23 03:21 Blood Pressure 155/102 H 11/07/23 03:21 Pulse Oximetry 94 11/07/23 03:21 Oxygen Delivery Method Room Air 11/07/23 03:21 GENERAL: Alert well-appearing 47-year-old male and in no acute distress. HEENT: Head atraumatic,EOMI, pupils reactive, face symmetric, moist mucous membranes CARDIOVASCULAR: Regular rate and rhythm without murmurs, rubs or gallops. RESPIRATORY: Breath sounds equal bilaterally, no wheezes rales or rhonchi. ABDOMEN: Soft, mild tenderness right lower quadrant : No CVA tenderness EXTREMITIES: Normal range of motion, no clubbing or edema. Neurovascularly intact NEUROLOGICAL: Alert and oriented x4.Normal gait and speech. SKIN: Warm, dry, no laceration, no petechiae, no rashes or lesions. Course Orders Ordered: ED Orders 11/07/23 03:29 CT abdomen pelvis w con Stat 11/07/23 03:30 Complete Blood Count AUTO DIFF Stat Comprehensive Metabolic Panel Stat Lipase Stat Vital Signs Vital signs: Vital Signs - 8 hr 11/07/23 03:21 11/07/23 03:21 11/07/23 03:25 Temperature 97.4 F L Pulse Rate 119 H 84 Respiratory Rate 16 Blood Pressure 155/102 H 155/102 H Pulse Oximetry 94 98 Oxygen Delivery Method Room Air Room Air 11/07/23 03:30 11/07/23 04:00 11/07/23 04:30 Temperature Pulse Rate 76 79 78 Respiratory Rate Blood Pressure Pulse Oximetry 97 97 96 Oxygen Delivery Method Room Air 11/07/23 05:00 11/07/23 05:12 11/07/23 05:12 Temperature Pulse Rate 74 97 H Respiratory Rate 16 Blood Pressure 135/81 Pulse Oximetry 95 92 Oxygen Delivery Method MDM - Abdominal Pain Lab Data 11/07/23 03:36 11/07/23 03:36 Labs: Lab Results 11/07/23 Range/Units 03:36 WBC 5.9 (4.5-11.0) X10^3/uL RBC 4.84 (4.5-5.9) X10^6/uL Hgb 14.0 (13.5-17.5) g/dL Hct 41.7 (41-53) % MCV 86.1 (80-100) fL MCH 28.9 (26-34) PG MCHC 33.6 (30-36) % RDW 13.7 (11.6-14.8) % Plt Count 305 (150-400) X10^3/uL Neut % (Auto) 52.8 (50-75) % Lymph % (Auto) 30.2 (25-40) % Angelina % (Auto) 13.2 (3-14) % Eos % (Auto) 2.7 (2-4) % Baso % (Auto) 1.1 (0-2) % Neut # (Auto) 3100 (2452-2212) /uL Lymph # (Auto) 1800 (2808-9423) /uL Angelina # (Auto) 800 (0-900) /uL Eos # (Auto) 200 (0-450) /uL Baso # (Auto) 100 (0-100) /uL Sodium 137 (137-145) mmol/L Potassium 3.8 (3.4-5.1) mmol/L Chloride 105 (98-107) mmol/L Carbon Dioxide 25 (22-32) mmol/L BUN 16 (9-20) mg/dL Creatinine 0.86 (0.66-1.25) mg/dL Estimated GFR > 60 (>60) mL/min BUN/Creatinine Ratio 18.6 (6-22) Glucose 106 H (70-100) mg/dL Calcium 9.5 (8.4-10.2) mg/dL Total Bilirubin 0.6 (0.2-1.3) mg/dL AST 24 (17-59) IU/L ALT 28 (<50) IU/L Alkaline Phosphatase 88 (38-126) U/L Total Protein 7.8 (6.3-8.2) g/dL Albumin 4.2 (3.5-5.0) g/dL Globulin 3.6 (1.7-4.1) g/dL Albumin/Globulin Ratio 1.2 (1.0-2.8) Lipase 63 (23-300) U/L Point of care testing: Urine Dip Bedside Urine Glucose Negative Bedside Urine Bilirubin - Negative Bedside Urine Ketone - Negative Urine Specific [place] 1.025 Bedside Urine Occult Blood - Negative Bedside Urine pH 6.0 Bedside Urine Protein - Negative Bedside Urine Urobilinogen - Negative Bedside Urine Nitrite - Negative Bedside Urine Leukocytes - Negative Esterase Imaging Data CT scan - abdomen/pelvis: Radiologist's Impression: Preliminary report normal-appearing appendix previous right inguinal hernia without evidence of complication recurrent evidence of hernia. Mild urinary bladder wall thickening appearance likely related to underdistention rather than abnormality. Complex left upper pole renal cyst unchanged. Stable appearance of left hemidiaphragm hernia without complication MDM Narrative Medical decision making narrative: Patient 47-year-old male with chronic right-sided abdominal pain presents with worsening right-sided pain. Not needing anything for pain here in the ED no nausea or vomiting. But tender on the right side. Has chronic ongoing back pain denies flank pain radiating to the abdomen. Blood work has been reviewed no clinical significant abnormalities no significant leukocytosis or kidney injury Imaging reviewed-no new findings no acute appendicitis Patient has not required anything for pain in the emergency department he is chronic ongoing abdominal pain unclear what is causing this pain. CT today did not show any obvious abnormality. At this time you would like a little Toradol. He has follow-up outpatient. Discharge Plan Departure Patient Disposition: Home Clinical Impression: Abdominal pain Instructions: DI for Abdominal Pain-Adult Activity Restrictions/Additional Instructions: *You have been diagnosed with abdominal pain *What to do: At this time no sign of appendicitis or hernia. Please follow-up at hernia clinic with [facility]. You do have a right inguinal hernia *Continue to take medications as directed *Follow up with your primary care provider in 2-3 days or call [phone] *Return to ER if you should have increasing pain nausea vomiting or any new, worsening or concerning symptoms Prescriptions: No Action methocarbamol 500 mg tablet 500 mg PO TID Qty: 30 0RF ketorolac 10 mg tablet 10 mg PO TID PRN (Reason: pain) Qty: 15 0RF Referrals: Nicole Jefferson ARNP [Primary Care Provider] - Stand Alone Forms: Patient Portal/API
[2023-11-07 03:44] LABS: Add Manual Diff / Slide Review NO; Basophils Absolute Auto 100 /uL (0-100); Basophils Percent Auto 1.1 % (0-2); Eosinophils Absolute Auto 200 /uL (0-450); Eosinophils Percent Auto 2.7 % (2-4); Hematocrit 41.7 % (41-53); Lymphocytes Absolute Auto 1800 /uL (1100-4500); Lymphocytes Percent Auto 30.2 % (25-40); Mean Corpuscular HGB Conc 33.6 % (30-36); Mean Corpuscular Hemoglobin 28.9 PG (26-34); Mean Corpuscular Volume 86.1 fL (80-100); Monocytes Absolute Auto 800 /uL (0-900); Monocytes Percent Auto 13.2 % (3-14); Neutrophils Absolute Auto 3100 /uL (1500-7000); Neutrophils Percent Auto 52.8 % (50-75); Platelet Count 305 X10^3/uL (150-400); Red Blood Cell Count 4.84 X10^6/uL (4.5-5.9); Red Cell Distribution Width 13.7 % (11.6-14.8); White Blood Cell Count 5.9 X10^3/uL (4.5-11.0)
[2023-11-07 03:54] LABS: Alanine Aminotransferase 28 IU/L (<50); Albumin 4.2 g/dL (3.5-5.0); Albumin Globulin Ratio 1.2 (1.0-2.8); Alkaline Phosphatase 88 U/L (38-126); Aspartate Aminotransferase 24 IU/L (17-59); BUN Creatinine Ratio 18.6 (6-22); Bilirubin Total 0.6 mg/dL (0.2-1.3); Blood Urea Nitrogen 16 mg/dL (9-20); Calcium 9.5 mg/dL (8.4-10.2); Carbon Dioxide 25 mmol/L (22-32); Chloride 105 mmol/L (98-107); Estimated Glomerular Filt Rate > 60 mL/min (>60); Globulin 3.6 g/dL (1.7-4.1); Glucose 106 mg/dL (70-100); HEMOLYSIS < 15 (0-50); Lipase 63 U/L (23-300); Potassium 3.8 mmol/L (3.4-5.1); Sodium 137 mmol/L (137-145); Total Protein 7.8 g/dL (6.3-8.2)
[2023-11-07] MEDS: KETOROLAC 30 MG/ML VIAL 15 MG IV (06:36)
== END 2023-11-07 06:44 | disposition home or self-care (01) ==
PROVIDERS: Emergency Provider Emergency Medicine; PCP Nurse Practitioner Family
DX: R10.9 Unspecified abdominal pain (principal)
CPT/HCPCS: 36415; 74177; 80053; 81003; 83690; 85025; 96374; 99284; J1885; Q9967

== ENCOUNTER → 2023-11-28 12:40 | Outpatient (CLI) | payer OTHER, SELFPAY ==
--- NOTE | 2023-11-28 12:43 | DI.RAD.S_ITS ---
PROCEDURE: [place] SHOULDER INJECTION MR/CT LT INDICATIONS: LT SHOULDER PAIN COMPARISON: [facility], , [place] SHOULDER INJECTION MR/CT LT, 02/07/2019, 9:37. TECHNIQUE: The indications, alternatives, benefits, risks, and complications of the procedure were explained to the patient. Written informed consent was obtained and placed in the chart. The shoulder was examined fluoroscopically and a site for needle placement chosen for entry into the glenohumeral joint from an anterior approach. The skin was prepped and draped in a sterile fashion, and 1% lidocaine infiltrated from skin down to joint capsule. A spinal needle was inserted into the glenohumeral joint, and a small amount of iodinated contrast media injected to confirm intra-articular placement of the needle tip. This was followed by approximately 12 mL dilute solution of a gadolinium containing MR contrast agent. The needle was removed and a dressing was applied. The patient was given postprocedural instructions and sent to the MR suite for MR imaging. Fluoro time: 0.1 minutes. 2 images saved FINDINGS: A single fluoroscopic spot image demonstrates intra-articular location of injected iodinated contrast. IMPRESSION: Successful fluoroscopically guided administration of dilute Gadolinium solution into the shoulder joint for MR arthrogram. Dictated by: Rhett Coffman M.D. on 11/28/2023 at 15:47 Approved by: Rhett Coffman M.D. on 11/28/2023 at 15:49
--- NOTE | 2023-11-28 12:43 | DI.MRI.S_ITS ---
PROCEDURE: MR SHOULDER LT W CON INDICATIONS: LT SHOULDER PAIN TECHNIQUE: After the administration of 12 mL of dilute intra-articular Gadolinium contrast, oblique coronal T1 and T2 spin echo with fat saturation, oblique sagittal T1 spin echo with and without fat saturation, oblique sagittal T2 fast spin echo with fat saturation, axial T1 spin echo with fat saturation through the shoulder. COMPARISON: None. FINDINGS: Image quality: Excellent. Rotator cuff: Low-grade articular and bursal surface partial thickness tear involving distal supraspinatus at its insertion on the humeral head is seen extending to musculotendinous junction. Distal infraspinatus and subscapularis tendinosis is seen. No full-thickness rotator cuff tendon rupture. No rotator cuff muscle atrophy on sagittal images. Bones and bursae: No bone marrow contusions or fractures. Mild to moderate acromioclavicular joint osteoarthritic changes are seen with joint space narrowing and downward osteophyte formation depressing the musculotendinous junction of supraspinatus. The acromion demonstrates conventional anatomy, without an os acromiale. Capsule and soft tissues: The labrum and glenohumeral ligaments appear intact. The long head of the biceps tendon demonstrates normal location and morphology. The rotator interval appears normal, without fibrosis. The coracohumeral ligament is of normal thickness. No intra-articular bodies. IMPRESSION: 1. Low-grade articular and bursal surface partial thickness tear involving distal supraspinatus extending to musculotendinous junction. Distal infraspinatus and subscapularis tendinosis. No full-thickness rotator cuff tendon rupture. No muscle atrophy. 2. [id number] acromioclavicular joint osteoarthritis. No shoulder fracture or dislocation. No gross intra-articular loose bodies. 3. No evidence of focal labral tear. Dictated by: Mark Valles M.D. on 11/28/2023 at 16:05 Approved by: Mark Valles M.D. on 11/28/2023 at 21:30
[2023-11-28] MEDS: LIDOCAINE 1% 20 ML INJ (13:57)
[2023-11-28] MEDS: SODIUM CHLORIDE 0.9 % 20 ML VIAL IV (13:58)
== END ==
PROVIDERS: PCP Nurse Practitioner Family; Referring Provider Student in an Organized Health Care Education/Training Program; Visit Provider Student in an Organized Health Care Education/Training Program
DX: M75.112 Incomplete rotator cuff tear or rupture of left shoulder, not specified as traumatic (principal); M19.012 Primary osteoarthritis, left shoulder; M25.512 Pain in left shoulder
CPT/HCPCS: 23350; 73222